=== PATIENT | male | born 1965 | race Two or more races ===

== ENCOUNTER 2020-09-26 16:37 | Inpatient (IN) | payer MEDICAID ==
[~2020-09-26] VITALS: Ht 167.6 cm; Wt 75.7 kg
--- NOTE | 2020-09-26 16:45 | NUR ---
MS CENTRAL COMMUNICATIONS SPECIALIST NOTE RECEIVED PATIENT DIRECT ADMISSION TO 306-1, ALERT AND ORIENTED X 4. NO SIGNS OR SYMPTOMS OF DISTRESS NOTED. COMPLAINED OF 3/10 PAIN OF CHEST. BREATHING IS EVEN AND UNLABORED. ABLE TO MAKE NEEDS KNOWN. ORIENTED PATIENT TO UNIT AND STAFF. IV ACCES LAC#20 PATENT AND INTACT. SKIN IS INTACT. SAFETY MEASURES IN PLACE WITH BED AT LOWEST POSITION AND SIDE RAILS UP X 2. CALL LIGHT IS WITHIN REACH. WILL CONTINUE TO MONITOR THROUGHOUT SHIFT.
[2020-09-26 17:00] VITALS: BP 126/82
[2020-09-26] MEDS ORDERED: Z GUARD REMEDY 2 OZ OINT TP PRN (17:30)
[2020-09-26] MEDS ORDERED: ZOLPIDEM TARTRATE 5 MG TABLET PO PRN (17:30)
[2020-09-26] MEDS ORDERED: ONDANSETRON HCL/PF 4 MG/2 ML VIAL IVP PRN (17:30)
[2020-09-26] MEDS ORDERED: MAGNESIUM HYDROXIDE 30 ML UDC PO PRN (17:30)
[2020-09-26] MEDS ORDERED: MAG HYDROX/AL HYDROX/SIMETH 30 ML UDC PO PRN (17:30)
[2020-09-26] MEDS ORDERED: ACETAMINOPHEN 325 MG TABLET PO PRN (17:30)
[2020-09-26] MEDS ORDERED: MECL-225 PO (17:43)
[2020-09-26] MEDS ORDERED: ASPI-1169 PO (17:43)
[2020-09-26] MEDS ORDERED: DICY20TA11 PO (17:43)
[2020-09-26] MEDS ORDERED: MENT70.8 TP (17:43)
[2020-09-26] MEDS ORDERED: METO50TA16 PO (17:43)
[2020-09-26] MEDS ORDERED: ONDA4TAB5 PO (17:43)
[2020-09-26] MEDS ORDERED: ATOR20TA PO (17:43)
[2020-09-26] MEDS ORDERED: OMEP40CA21 PO (17:43)
[2020-09-26] MEDS ORDERED: BACL10TA PO (17:43)
--- NOTE | 2020-09-26 18:48 | NUR ---
MS RN CLOSING NOTE PATIENT AWAKE IN BED, ALERT AND ORIENTED X 4. NO SIGNS OR SYMPTOMS OF DISTRESS NOTED. BREATHING IS EVEN AND UNLABORED. ABLE TO MAKE NEEDS KNOWN. IV ACCES LAC#20 PATENT AND INTACT. SKIN IS INTACT. RAPID COVID TEST PENDING. SAFETY MEASURES IN PLACE WITH BED AT LOWEST POSITION AND SIDE RAILS UP X 2. CALL LIGHT IS WITHIN REACH. WILL ENDORSE CONTINUITY OF CARE TO NEXT NURSE.
[2020-09-26] MEDS: MORPHINE SULFATE INJ 2 MG/ML DISP.SYRIN IV PRN ×2 (19:03→22:40)
--- NOTE | 2020-09-26 19:30 | NUR ---
CHOREOGRAPHY DIRECTOR NOTES RECEIVED ON BED AWAKE,ALERT,ORIENTED X4,SPEAK FRISIAN WITH LITTLE AMHARIC.BREATHING REGULAR,NOT IN ANY FORM OF DISTRESS,SR-70 ON TELE MONITOR,C/O CHEST PAIN 5/10 ON PAIN SCALE,TOLERABLE VERBALIZED BY PATIENT.WITH SALINE LOCK LEFT AC INTACT AND PATENT.CALL LIGHT IN REACH,NEEDS ANTICIPATED.
[2020-09-26 20:00] VITALS: BP 104/66
[2020-09-26] MEDS: BACLOFEN (10 MG) 10 MG TABLET PO SCH (22:28)
[2020-09-26] MEDS: ASPIRIN 81 MG TAB.CHEW PO SCH (22:28)
[2020-09-26] MEDS: METOPROLOL TARTRATE 50 MG TABLET PO SCH (22:29)
--- NOTE | 2020-09-26 22:40 | NUR ---
FRONT OFFICE DEVELOPER NOTES PAIN MANAGEMENT C/O LEFT SHOULDER PAIN 9/10 ON PAIN SCALE, MORPHINE 1MG IV GIVEN PER PATIENT REQUEST.
[2020-09-27 04:19] VITALS: BP 97/62
[2020-09-27 06:18] LABS: BASOPHILS % (AUTO) 0.3 % (0.0-2.0); EOSINOPHILS % (AUTO) 2.2 % (0.0-6.0); HEMATOCRIT 39 % (39-51); HEMOGLOBIN 13.1 g/dL (13.5-17.5); LYMPHOCYTES # (AUTO) 1.4 K/uL (0.8-4.8); LYMPHOCYTES % (AUTO) 24.3 % (20.0-44.0); MEAN CORPUSCULAR HGB CONC 34 g/dl (31.0-36.0); MEAN CORPUSCULAR VOLUME 95 fL (80-96); MONOCYTES % (AUTO) 16.5 % (2.0-12.0); NEUTROPHILS # (AUTO) 3.3 K/uL (1.8-8.9); NEUTROPHILS % (AUTO) 56.7 % (43.0-81.0); PLATELET COUNT (AUTO) 246 K/uL (150-450); RED BLOOD CELL COUNT(AUTO) 4.08 MIL/uL (4.5-6.0); WHITE BLOOD COUNT (AUTO) 5.8 K/uL (4.3-11.0)
--- NOTE | 2020-09-27 06:52 | NUR ---
PAPER MACHINE BACK TENDER NOTES STILL WITH ON AND OFF CHEST PAIN MANAGE WITH MORPHINE,ABLE TO AMBULATE TO THE RESTROOM WITH STEADY GAIT.SALINE LOCK REMAINS PATENT.ALL DUE MEDS ADMINISTERED,CALL LIGHT IN REACH,NEEDS ATTENDED.
[2020-09-27 06:57] LABS: CALCIUM, SERUM 8.7 mg/dL (8.5-10.1); CREATININE 0.8 mg/dL (0.6-1.3); MAGNESIUM 2.4 mg/dL (1.8-2.4); PHOSPHORUS 4.7 mg/dL (2.5-4.9); POTASSIUM 4.5 mmol/L (3.5-5.1)
--- NOTE | 2020-09-27 07:43 | NUR ---
RN OPENING NOTE PATIENT RECEIVED IN CHAIR AO X 4 SPEAK SYRIAC, ABLE TO RESPONDS ALL STIMULI. SKIN IS WARM TO TOUCH, KEEP CLEAN/DRY, INTACT IV SITE. RESPIRATORY EVEN AND UNLABORED ON ROOM AIR. KEEP ELEVATED HOB FOR ENSURE AIRWAY AND ASPIRATION PRECAUTION, ALSO LOWEST BED POSITION FOR SAFETY. CALL LIGHT WITHIN REACH, WILL CONTINUE TO MONITOR.
[2020-09-27] MEDS: ASPIRIN 81 MG TAB.CHEW PO SCH (08:04)
[2020-09-27] MEDS: PANTOPRAZOLE 40 MG TABLET.DR PO SCH (08:04)
[2020-09-27] MEDS: BACLOFEN (10 MG) 10 MG TABLET PO SCH ×2 (08:04→16:35)
[2020-09-27 08:43] VITALS: BP 100/52
[2020-09-27] MEDS: METOPROLOL TARTRATE 50 MG TABLET PO SCH ×2 (09:00→16:36)
--- NOTE | 2020-09-27 09:00 | NUR ---
bp-100/52, p-67 will hold bp med.
[2020-09-27 09:57] LABS: BAND % (MANUAL) 1 % (0.0-5.0); EOSINOPHILS % (MANUAL) 2 % (0-4); LYMPHOCYTES % (MANUAL) 27 % (16-48); MONOCYTES % (MANUAL) 12 % (0-11.0); MYELOCYTES % 2 % (0-0); NEUTROPHILS % (MANUAL) 56 (42-76)
[2020-09-27] MEDS ORDERED: NITROGLYCERIN 0.4 MG/TAB BOTTLE ONE (12:28)
[2020-09-27] MEDS ORDERED: METOPROLOL TARTRATE INJ 5 MG/5 ML AMPUL ONE ×2 (12:28→12:53)
[2020-09-27] MEDS ORDERED: IOHEXOL-350 100 ML VIAL IV ONE (12:28)
[2020-09-27] MEDS ORDERED: CT SWABBABLE VALVE TRANS SET 1 EA INFUS.SET MC ONE (12:29)
[2020-09-27] MEDS ORDERED: IV NS 0.9% 250 ML IV ONE (12:29)
--- NOTE | 2020-09-27 12:30 | NUR ---
PATIENT LEFT TO CTA IN STABLE CONDITION. PATIENT STATED STILL A LITTLE PAIN ON LEFT SHOULDER BUT PAIN MUCH RELIEF AFTER TAKEN BACLOFEN.
[2020-09-27] MEDS: METOPROLOL TARTRATE INJ 5 MG/5 ML AMPUL IVP PRN ×3 (12:45→12:55)
[2020-09-27] MEDS ORDERED: NITROGLYCERIN 0.4 MG/TAB BOTTLE SL ONE (13:00)
--- NOTE | 2020-09-27 13:30 | NUR ---
PATIENT BACK FROM CTA, NO S/S OF DISTRESS OBSERVED. WILL CONTINUE TO MONITOR.
--- NOTE | 2020-09-27 18:03 | NUR ---
RN CLOSING NOTE PATIENT IN BED RESTING, S/P CTA. NO S/S OF DISTRESS OBSERVED. RESPIRATORY EVEN AND UNLABORED ON ROOM AIR O2SAT 100%. SKIN IS WARM TO TOUCH KEEP CLEAN/DRY INTACT IV SITE. KEPT ELEVATED HOB FOR ENSURE AIRWAY AND ASPIRATION PRECAUTION, ALSO LOWEST BED POSITION FOR SAFETY. CALL LIGHT WITHIN REACH, WILL ENDORSE MANAGER HEAVY DUTY.
[2020-09-27] MEDS: MORPHINE SULFATE INJ 2 MG/ML DISP.SYRIN IV PRN (19:32)
--- NOTE | 2020-09-27 19:40 | NUR ---
MS/RN OPENING NOTE RECEIVED PATIENT SLEEPING IN BED. ALERT AND ORIENTED X 4. PRIMARILY INDONESIAN SPEAKING BUT UNDERSTANDS SOME MAORI. ABLE TO MAKE NEEDS KNOWN. C/O PAIN TO LEFT SHOULDER 10/29, DENIES CHEST PAIN/SOB- WILL ADMINISTER ORDERED PAIN MEDICATION. IV ACCES TO LEFT AC #20G INTACT, PATENT AND SALINE LOCKED. CONTINUES ON CARDIAC DIET WITH NO S/SX OF ASPIRATION NOTED. CALL LIGHT WITHIN REACH. ASPIRATION, FALL AND SAFETY PRECAUTIONS MAINTAINED. WILL CONTINUE TO MONITOR.
[2020-09-27 20:00] VITALS: BP 110/61
--- NOTE | 2020-09-27 20:00 | NUR ---
MS/RN NOTE ADMINISTERED PRN MORPHINE IV FOR PAIN LEVEL OF 8/10 TO LEFT SHOULDER.
[2020-09-27] MEDS ORDERED: ATORVASTATIN 10 MG TABLET PO SCH (22:00)
[2020-09-28] MEDS: MORPHINE SULFATE INJ 2 MG/ML DISP.SYRIN IV PRN ×3 (00:48→11:27)
--- NOTE | 2020-09-28 06:10 | NUR ---
MS/RN CLOSING NOTE PATIENT CURRENTLY SLEEPING IN BED. ALERT AND ORIENTED X 4. PRIMARILY IVORIAN SPEAKING BUT UNDERSTANDS SOME ITALIAN. ABLE TO MAKE NEEDS KNOWN. NO C/O PAIN AT THIS TIME. IV ACCES TO LEFT AC #20G INTACT, PATENT AND SALINE LOCKED. CONTINUES ON CARDIAC DIET WITH NO S/SX OF ASPIRATION NOTED. CALL LIGHT WITHIN REACH. ASPIRATION, FALL AND SAFETY PRECAUTIONS MAINTAINED. WILL ENDORSE PLAN OF CARE TO ONCOMING SHIFT.
--- NOTE | 2020-09-28 07:28 | NUR ---
MS RN OPENING NOTES RECEIVED PATIENT IN BED, AWAKE, A/OX4. PATIENT ON ROOM AIR; BREATHING EVEN AND UNLABORED, NO SOB PRESENT AT THIS TIME. IV ACCESS ON LAC G # 20, S/L PRESENT AND INTACT. NO COMPLAINS OF PAIN AT THIS MOMENT. SAFETY PRECAUTIONS IN PLACE; BED IN LOW POSITION AND LOCKED, RAILS UP X2, CALL LIGHT WITHIN REACH. WILL CONTINUE TO MONITOR PATIENT.
[2020-09-28 08:00] VITALS: BP 129/83
[2020-09-28] MEDS: PANTOPRAZOLE 40 MG TABLET.DR PO SCH (08:29)
[2020-09-28] MEDS: ASPIRIN 81 MG TAB.CHEW PO SCH (08:29)
[2020-09-28] MEDS: BACLOFEN (10 MG) 10 MG TABLET PO SCH (08:29)
[2020-09-28 08:30] VITALS: BP 129/83
[2020-09-28] MEDS: METOPROLOL TARTRATE 50 MG TABLET PO SCH (08:30)
--- NOTE | 2020-09-28 11:28 | NUR ---
MS RN NOTES PATIENT COMPLAINING OF SHOULDER PAIN 9 OUT OF 10. PRN PAIN MEDICATION ADMINISTERED. WILL REASSESS.
--- NOTE | 2020-09-28 14:29 | NUR ---
MS PLANT OPERATIONS MANAGER NOTES PATIENT DISCHARGED HOME IN MEDICALLY STABLE CONDITION. PATIENT A/O X4, ON ROOM AIR AND ABLE TO MAKE NEEDS KNOWN. ALL DISCHARGE PAPERWORK READY AND TEACHING PROVIDED TO PATIENT REGARDING PHYSICIAN ORDERS, MEDICATIONS AND FOLLOW UP; PATIENT VERBALIZED UNDERSTANDING AND PAPERS SIGNED. BELONGINGS ACCOUNTED FOR AND FORM SIGNED WELL. PERSONAL MEDICATIONS PICKED UP FROM THE PHARMACY AND RETURNED TO PATIENT. SKIN INTACT. IV ACCESS REMOVED BEFORE PATIENT LEFT THE UNIT. WRISTBAND REMOVED WELL. PATIENT LEFT THE FLOOR AT 1430 ACCOMPANIED BY CARBIDE OPERATOR AND LEFT THE HOSPITAL IN A TAXI (PAID BY PATIENT) PER HIS OWN REQUEST.
== END 2020-09-28 14:30 | disposition home or self-care (01) | DRG 190 ==
LOC: TELE 16:37 → MED 09-27 09:09
PROVIDERS: ADMIT Nurse Practitioner Acute Care; ATTEND Nurse Practitioner Acute Care
DX: I21.4 Non-ST elevation (NSTEMI) myocardial infarction (principal); E78.5 Hyperlipidemia, unspecified; I10 Essential (primary) hypertension; I25.10 Atherosclerotic heart disease of native coronary artery without angina pectoris; Z20.822 Contact with and (suspected) exposure to COVID-19
CPT/HCPCS: 36415; 73030-TC; 75574; 80048-TC; 80061-TC; 83735-TC; 84100-TC; 84484-TC; 85025-TC; 93307-TC; G0378; J2270; J3490; J7050; Q9967; U0003

== ENCOUNTER 2021-01-19 18:04 | Emergency (ER) | payer SELFPAY ==
[~2021-01-19] VITALS: Ht 165.1 cm; Wt 86.2 kg
[~2021-01-19 18:04] MED LIST: ASPI-1169 PO; ATOR20TA PO; BACL10TA PO; DICY20TA11 PO; MECL-182 PO; MENT70.8 TP; METO50TA16 PO; OMEP40CA21 PO; ONDA4TAB5 PO
[2021-01-19 18:23] VITALS: BP 156/112
--- NOTE | 2021-01-19 18:26 | NUR ---
TAKEN TO RADIOLOGY
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
--- NOTE | 2021-01-19 19:12 | NUR ---
[employer] 9X14 AT BEDSIDE
--- NOTE | 2021-01-19 19:18 | NUR ---
Patient discharged to home in stable condition. Written and verbal after care instructions given. Patient verbalizes understanding of instruction. [employer] UNIT# 9X14 WILL GIVE A RIDE TO PATIENT TO GET HOME
== END 2021-01-19 19:20 | disposition home or self-care (01) ==
LOC: ER 18:06
DX: S13.4XXA Sprain of ligaments of cervical spine, initial encounter (principal); S09.8XXA Other specified injuries of head, initial encounter; Y08.89XA Assault by other specified means, initial encounter; Y93.89 Activity, other specified; Y92.89 Other specified places as the place of occurrence of the external cause; Y99.8 Other external cause status
CPT/HCPCS: 72125-TC

== ENCOUNTER 2021-05-13 22:52 | Inpatient (IN) | payer SELFPAY ==
[~2021-05-13] VITALS: Ht 144.8 cm; Wt 79.8 kg
--- NOTE | 2021-05-13 23:05 | NUR ---
TO ER BED 2. BIBSELF C/O ABD PAIN AND LEFT SIDE CP X 5 DAYS, N/V AFTER EATING. PT CHANGED INTO GOWN. CONNECTED TO MONITOR. NOT IN RESPIRATORY DISTRESS. AWAITING MD CLAYTON
--- NOTE | 2021-05-13 23:30 | NUR ---
URINE SAMPLE COLLECTED AND SENT TO LAB
[2021-05-13 23:40] LABS: CARBON DIOXIDE 26 mmol/L (21-32); CHLORIDE 89 mmol/L (98-107); CREATININE 0.8 mg/dL (0.6-1.3); GLUCOSE 124 mg/dL (74-106); POTASSIUM 3.5 mmol/L (3.5-5.1); SODIUM SERUM 125 mmol/L (136-145); UREA NITROGEN, BLOOD 8 mg/dL (7-18)
--- NOTE | 2021-05-13 23:42 | NUR ---
PT TAKEN FOR CT SCAN
[2021-05-13 23:49] LABS: ALANINE AMINOTRANSFERASE 59 U/L (12-78); ALBUMIN 4.4 g/dL (3.4-5.0); ALKALINE PHOSPHATASE 108 U/L (46-116); ASPARTATE AMINOTRANSFERASE 64 U/L (15-37); BILIRUBIN,DIRECT 0.2 mg/dL (0.0-0.2); BILIRUBIN,TOTAL 0.6 mg/dL (0.2-1.0); LIPASE 116 U/L (73-393); TOTAL PROTEIN, SERUM 8.1 g/dL (6.4-8.2)
--- NOTE | 2021-05-13 23:49 | NUR ---
PT RETURNED FROM CT, RECONNECTED TO MONITOR
[2021-05-14 00:01] LABS: BILIRUBIN,URINE NEGATIVE (NEGATIVE); COLOR,URINE YELLOW (YELLOW); LEUKOCYTE ESTERASE ,URINE NEGATIVE (NEGATIVE); NITRITE, URINE NEGATIVE (NEGATIVE); PROTEIN,URINE NEGATIVE (NEGATIVE); UGLUCOSE NEGATIVE (NEGATIVE); UROBILINOGEN,URINE 0.2 EU/dL (0.2)
[2021-05-14 00:06] LABS: BASOPHILS % (AUTO) 0.4 % (0.0-2.0); EOSINOPHILS % (AUTO) 0.8 % (0.0-6.0); HEMATOCRIT 41 % (39-51); HEMOGLOBIN 14.3 g/dL (13.5-17.5); LYMPHOCYTES # (AUTO) 0.5 K/uL (0.8-4.8); LYMPHOCYTES % (AUTO) 7.8 % (20.0-44.0); MEAN CORPUSCULAR HGB CONC 35 g/dl (31.0-36.0); MEAN CORPUSCULAR VOLUME 93 fL (80-96); MONOCYTES # (AUTO) 0.6 K/uL (0.1-1.30); NEUTROPHILS # (AUTO) 4.7 K/uL (1.8-8.9); PLATELET COUNT (AUTO) 279 K/uL (150-450); RED BLOOD CELL COUNT(AUTO) 4.35 MIL/uL (4.5-6.0); WHITE BLOOD COUNT (AUTO) 5.9 K/uL (4.3-11.0)
--- NOTE | 2021-05-14 00:28 | NUR ---
COVID ANTIGEN SWAB COLLECTED AND SENT TO LAB
--- NOTE | 2021-05-14 00:47 | NUR ---
IV LINE ESTABLISHED. LFA 20G.
--- NOTE | 2021-05-14 00:51 | NUR ---
BED 309-1
[2021-05-14] MEDS ORDERED: METOCLOPRAMIDE HCL 10 MG/2 ML VIAL ONE (00:53)
[2021-05-14] MEDS ORDERED: MORPHINE SULFATE INJ 2 MG/ML DISP.SYRIN ONE (00:53)
[2021-05-14] MEDS ORDERED: PIPERACILLIN /TAZOBACTAM 3.375 G in IV D5W 50 ML IV ONE (01:00)
[2021-05-14] MEDS ORDERED: METOCLOPRAMIDE HCL 10 MG/2 ML VIAL IV ONE (01:00)
[2021-05-14] MEDS ORDERED: IV NS 0.9% 1,000 ML BAG IV ONE (01:00)
[2021-05-14] MEDS ORDERED: MORPHINE SULFATE INJ 2 MG/ML DISP.SYRIN IV ONE (01:00)
--- NOTE | 2021-05-14 01:00 | NUR ---
MRSA SWAB COLLECTED AND SENT TO LAB. PATIENT'S BELONGINGS LIST DONE.
--- NOTE | 2021-05-14 01:07 | NUR ---
REPORT GIVEN TO CHRIS GONZALEZ FOR LOGAN
[2021-05-14] MEDS ORDERED: PIPERACILLIN /TAZOBACTAM 3.375 G VIAL IV ONE (01:11)
[2021-05-14] MEDS ORDERED: ASPIRIN EC 81 MG TABLET.DR PO ONE (01:12)
[2021-05-14] MEDS ORDERED: ASPIRIN 81 MG TAB.CHEW ONE (01:13)
[2021-05-14] MEDS: ASPIRIN 81 MG TAB.CHEW PO SCH ×2 (01:20→08:38)
--- NOTE | 2021-05-14 01:50 | NUR ---
RN ADMITTING NOTE PATIENT ADMITTED FROM ER, PATIENT AMBULATED FROM GURNEY TO BED. PATIENT A/O X 4 ABLE TO MAKE NEEDS KNOWN. COMPLAINS OF ABDOMINAL PAIN AND PAIN ON LEFT SHOULDER TO ARM. NO CHEST PAIN VERBALIZED. PATIENT UNDERSTANDS SURINAMESE, PRIMARY LANGUAGE THAI. TELE MONITOR READS SR 85 BPM. SKIN IS INTACT. PMH DOCUMENTED. PATIENT STATES HE'S GOTTEN 2 COVID VACCINES PFIZER. PATIENT WOULD LIKE TO RECEIVE BOOSTER AND FLU VACCINE BEFORE DISCHARGE. PATIENT HAS A LFA 20G PATIENT AND INTACT. PATIENT 'S BELONGINGS INVENTORIED. ORIENTED PATIENT TO THE ROOM ANA GONZALEZ. SAFETY MEASURES IMPLEMENTED. BED LOCKED AND IN LOWEST POSITION, CALL LIGHT WITHIN REACH, SIDE RAILS UP. WILL MONITOR PATIENT CLOSELY.
[2021-05-14] MEDS ORDERED: MAG HYDROX/AL HYDROX/SIMETH 30 ML UDC PO PRN (02:00)
[2021-05-14] MEDS ORDERED: HYDROCODONE/APAP 5/325MG TABLET PO PRN (02:00)
[2021-05-14] MEDS ORDERED: IV NS 0.9% 1,000 ML IV PRN (02:00)
[2021-05-14] MEDS ORDERED: MAGNESIUM HYDROXIDE 30 ML UDC PO PRN (02:00)
[2021-05-14] MEDS ORDERED: Z GUARD REMEDY 4 OZ OINT TP PRN (02:00)
[2021-05-14] MEDS ORDERED: TEMAZEPAM 15 MG CAPSULE PO PRN (02:00)
[2021-05-14] MEDS: ENOXAPARIN SODIUM 40 MG/0.4 ML DISP.SYRIN SQ SCH ×2 (02:26→21:19)
[2021-05-14] MEDS: MORPHINE SULFATE INJ 2 MG/ML DISP.SYRIN IV PRN ×2 (02:27→07:31)
--- NOTE | 2021-05-14 07:27 | NUR ---
RN CLOSING NOTE PATIENT A/O X 4 ABLE TO MAKE NEEDS KNOWN. NO COMPLAINTS OF PAIN OR RESPIRATORY DISTRESS AT THIS TIME. TELE MONITOR READS SR 85 BPM. PMH PATIENT HAS A LFA 20G PATIENT AND INTACT. ALL NURSING NEEDS MET THROUGHOUT THE SHIFT. BED LOCKED AND IN LOWEST POSITION, CALL LIGHT WITHIN REACH, SIDE RAILS UP. WILL ENDORSE LOGAN TO DAY SHIFT NURSE.
--- NOTE | 2021-05-14 07:30 | NUR ---
MASTER BREWER OPENING NOTES RECEIVED PATIENT IN BED A/O X 4 ABLE TO MAKE NEEDS KNOWN WITH COMPLAINT OF 10/10 LOWER ABDOMINAL PAIN (HX OF RECURRENT ABDOMINAL PAIN, PRN PAIN MED TO BE ADMINISTERED). ON ROOM AIR WITH NO COMPLAINTS OF RESPIRATORY DISTRESS AT THIS TIME. L FA 20 G IV WITH NS INFUSING AT 75 ML/HR. SAFETY MEASURES IN PLACE: BED IN LOWEST LOCKED POSITION, CALL LIGHT WITHIN REACH, SIDE RAILS UP X 2. WILL CONTINUE TO MONITOR. Addendum: 05/14/21 at 0759 by ANDREW WALLACE RN PATIENT ON EXTERNAL ROLL COATING MACHINE OPERATOR READING NSR 98
--- NOTE | 2021-05-14 07:37 | NUR ---
PATIENT A/O X 4, ABLE TO MAKE NEEDS KNOWN AND WITH COMPLAINT OF 10/10 LOWER ABDOMINAL PAIN, PATIENT REQUESTED PAIN MEDICATION. PRN MORPHINE 4 MG IVP ADMINISTERED ORDERED. WILL CONTINUE TO MONITOR FOR S/S OF PAIN.
[2021-05-14] MEDS ORDERED: TRAM50TA2 PO (08:16)
[2021-05-14] MEDS ORDERED: ASPI-1420 PO (08:16)
[2021-05-14] MEDS: PANTOPRAZOLE 40 MG TABLET.DR PO SCH (08:38)
[2021-05-14] MEDS: ASPIRIN EC 81 MG TABLET.DR PO SCH (09:00)
[2021-05-14] MEDS ORDERED: Medication Not On Formulary EA (Omeprazole 40 MG) PO SCH (09:00)
[2021-05-14] MEDS ORDERED: ASPIRIN 81 MG TAB.CHEW PO SCH (09:00)
--- NOTE | 2021-05-14 09:29 | NUR ---
RN NOTES PT SEEN AND EVALUATED BY DR GOODMAN. CTA WAS ORDERED, CONSENT SIGNED AND CONTRAST SCREENING QUESTIONNAIRES DONE.
[2021-05-14] MEDS: METOPROLOL TARTRATE 50 MG TABLET PO SCH ×2 (09:34→16:26)
[2021-05-14] MEDS: TRAMADOL HCL 50 MG TABLET PO SCH ×2 (09:35→21:15)
[2021-05-14] MEDS: LISINOPRIL (10MG) 10 MG TABLET PO SCH (09:36)
[2021-05-14 10:22] VITALS: BP 147/89
[2021-05-14 11:22] LABS: BACTERIA,URINE None seen /HPF (None Seen); RBC,URINE 0-2 /HPF (0-2); SQUAMOUS EPITHELIAL CELL,UR None Seen /HPF (None Seen); WBC,URINE 0-1 /HPF (0-3)
[2021-05-14] MEDS: IV NS 0.9% 1,000 ML IV SCH ×2 (11:39→21:54)
[2021-05-14] MEDS ORDERED: IOHEXOL-350 100 ML VIAL IV ONE (13:17)
[2021-05-14] MEDS ORDERED: NITROGLYCERIN 0.4 MG/TAB BOTTLE ONE (13:17)
[2021-05-14] MEDS ORDERED: METOPROLOL TARTRATE INJ 5 MG/5 ML AMPUL ONE ×3 (13:18→14:08)
[2021-05-14] MEDS ORDERED: IV NS 0.9% 250 ML IV ONE (13:18)
[2021-05-14] MEDS ORDERED: CT SWABBABLE VALVE TRANS SET 1 EA INFUS.SET MC ONE ×2 (13:18→13:49)
[2021-05-14] MEDS ORDERED: NITROGLYCERIN 0.4 MG/TAB BOTTLE SL ONE (13:30)
[2021-05-14] MEDS: METOPROLOL TARTRATE INJ 5 MG/5 ML AMPUL IVP PRN ×6 (13:42→14:07)
[2021-05-14] MEDS ORDERED: IV NS 0.9% 1,000 ML IV ONE (13:49)
--- NOTE | 2021-05-14 14:22 | NUR ---
pt consented to CTA heart with 3D imaging; BP initially low at 93/53 Dr Moore aware with order to give NS 1 liter IV bolus; BP improved and was able to give a total of Metoprolol 5 mg/IVP every 5 minutes x 6 doses, NTG was not given as BP dropped again to SBP90's; pt tolerated procedure; sent back to floor ; report given to LISA Park
[2021-05-14] MEDS ORDERED: IV NS 0.9% 500 ML IV PRN (14:30)
[2021-05-14 15:52] VITALS: BP 147/93
[2021-05-14] MEDS: ACETAMINOPHEN 325 MG TABLET PO PRN (16:17)
[2021-05-14] MEDS: ONDANSETRON HCL/PF 4 MG/2 ML VIAL IVP PRN (16:17)
--- NOTE | 2021-05-14 16:21 | NUR ---
RN NOTES PT C/O MILD HEADACHE AND NAUSEA. PRN TYLENOL 650MG PO AND ZOFRAN 4MF/2ML IVP ADMINISTERED AT 1617. WILL CONTINUE TO MONITOR AND REASSESS PT.
--- NOTE | 2021-05-14 17:28 | NUR ---
RN NOTES RESULTS OF CTA OF HEAD AND CAROTID SENT TO DR GOODMAN VIA TEXT MESSAGE. AWAITING ANY FURTHER ORDERS.
--- NOTE | 2021-05-14 18:40 | NUR ---
309-1 TAPE KELLER OPERATOR CLOSING NOTES PATIENT IN BED A/O X 4 ABLE TO MAKE NEEDS KNOWN, ON ROOM AIR WITH NO COMPLAINTS OF PAIN OR RESPIRATORY DISTRESS AT THIS TIME. ON EXTERNAL MANUAL LATHE OPERATOR READING NSR 70. L FA 20 G IV WITH NS INFUSING AT 75 ML/HR. SAFETY MEASURES IN PLACE: BED IN LOWEST LOCKED POSITION, CALL LIGHT WITHIN REACH, SIDE RAILS UP X 2. WILL ENDORSE TO WAREHOUSE ORDER PULLER FOR LOGAN.
[2021-05-14 20:00] VITALS: BP 100/63
--- NOTE | 2021-05-14 20:22 | NUR ---
SCOOP FILLER OPENING NOTE PATIENT AWAKE IN BED. A/OX1, YI/KISWAHILI SPEAKING. NO S/S OF DISTRESS, BREATHING SYMMETRICAL. RM AIR. TELE MONITOR REVEALS SR 73. LFA #20 AND RAC #20 INTACT AND PATENT. SAFETY MEASURES IN PLACE: BED AT LOWEST POSITION, RAILS UP X2, CALL LALA WITHIN REACH. WILL CONTINUE TO MONITOR.
[2021-05-14] MEDS ORDERED: ATORVASTATIN 10 MG TABLET PO SCH (22:00)
[2021-05-14] MEDS ORDERED: Medication Not On Formulary EA (Atorvastatin Calcium (Lipitor) 20 MG) PO SCH (22:00)
[2021-05-15] VITALS: BP 115/65
[2021-05-15 04:00] VITALS: BP 124/70
--- NOTE | 2021-05-15 06:38 | NUR ---
ASSISTANT CHIEF ENGINEER CLOSING NOTE PATIENT ASLEEP IN BED. A/OX4. NO S/S OF DISTRESS, BREATHING SYMMETRICAL. RAC #20 SL & LFA #20 RUNNING W/ NS @ 100ML/HR -BOTH INTACT AND PATENT. TELE MONITOR REVEALS SR 66. SAFETY MEASURES IN PLACE: BED AT LOWEST POSITION, RAILS UP X2, CALL LALA WITHIN REACH. WILL ENDORSE TO NEXT SHIFT FOR LOGAN.
--- NOTE | 2021-05-15 07:18 | NUR ---
FABRIC WORKER OPENING NOTE PATIENT ON BED ASLEEP BUT RESPONSIVE TO CALL, HE IS ALERT AND ORIENTED X 4. PATIENT IS ON ROOM AIR WITH NO SIGNS OF DISTRESS. WITH RIGHT AC IV ACCESS G20 ON SALINE LOCK, PATNET AND INTACT. WITH LEFT FOREARM G 20 WITH IVF NS 100 ML/HR, INFUSING WELL. WITH NO SKIN BREAKDOWN. \O COMPLAINTS OF PAIN OR DISCOMFORT AT THIS TIME. SAFETY MEASURES IN PLACED. CALL LIGHT WITHIN REACH. BED ON LOWEST LOCKED POSITION, SIDE RAILS UP X2. WILL CONTINUE TO MONITOR PATIENT.
[2021-05-15 07:45] LABS: BASOPHILS % (AUTO) 0.4 % (0.0-2.0); EOSINOPHILS % (AUTO) 2.4 % (0.0-6.0); HEMATOCRIT 39 % (39-51); HEMOGLOBIN 13.1 g/dL (13.5-17.5); LYMPHOCYTES # (AUTO) 0.7 K/uL (0.8-4.8); LYMPHOCYTES % (AUTO) 12.9 % (20.0-44.0); MEAN CORPUSCULAR HGB CONC 34 g/dl (31.0-36.0); MEAN CORPUSCULAR VOLUME 95 fL (80-96); MONOCYTES # (AUTO) 0.9 K/uL (0.1-1.30); MONOCYTES % (AUTO) 15.5 % (2.0-12.0); NEUTROPHILS # (AUTO) 3.8 K/uL (1.8-8.9); NEUTROPHILS % (AUTO) 68.8 % (43.0-81.0); PLATELET COUNT (AUTO) 278 K/uL (150-450); RED BLOOD CELL COUNT(AUTO) 4.06 MIL/uL (4.5-6.0); WHITE BLOOD COUNT (AUTO) 5.5 K/uL (4.3-11.0)
--- NOTE | 2021-05-15 07:45 | NUR ---
ASSISTANT MANAGER BILINGUAL NOTE PATIENT SEEN BY DR. GOODMAN. WILL CONTINUE TO MONITOR PATIENT.
[2021-05-15 08:00] VITALS: BP 113/64
[2021-05-15 08:11] LABS: CALCIUM, SERUM 9.2 mg/dL (8.5-10.1); CREATININE 0.7 mg/dL (0.6-1.3); MAGNESIUM 2.2 mg/dL (1.8-2.4); PHOSPHORUS 4.2 mg/dL (2.5-4.9); POTASSIUM 4.4 mmol/L (3.5-5.1)
[2021-05-15] MEDS ORDERED: LISI10TA29 PO (08:45)
[2021-05-15] MEDS: ASPIRIN EC 81 MG TABLET.DR PO SCH (08:51)
[2021-05-15] MEDS: PANTOPRAZOLE 40 MG TABLET.DR PO SCH (08:51)
[2021-05-15] MEDS: LISINOPRIL (10MG) 10 MG TABLET PO SCH (08:52)
[2021-05-15] MEDS: METOPROLOL TARTRATE 50 MG TABLET PO SCH ×2 (08:52→16:28)
[2021-05-15] MEDS: TRAMADOL HCL 50 MG TABLET PO SCH (08:53)
--- NOTE | 2021-05-15 11:00 | NUR ---
TEST ENG NOTE PATIENT WITH ORDER FOR DISCHARGE TO HOME. PATIENT HEALTH TEACHING DONE AND VERBALIZED UNDERSTANDING AND APPRECIATION. IN STABLE CONDITION. COMFORT MEASURES PROVIDED. WILL CONTINUE TO MONITOR PATIENT.
[2021-05-15] MEDS ORDERED: ONDA4TAB5 PO (11:10)
[2021-05-15] MEDS: MORPHINE SULFATE INJ 2 MG/ML DISP.SYRIN IV PRN (11:48)
[2021-05-15] MEDS: ONDANSETRON HCL/PF 4 MG/2 ML VIAL IVP PRN (11:48)
[2021-05-15 12:18] LABS: BAND % (MANUAL) 2 % (0.0-5.0); LYMPHOCYTES % (MANUAL) 6 % (16-48); NEUTROPHILS % (MANUAL) 75 (42-76)
[2021-05-15 12:19] LABS: EOSINOPHILS % (MANUAL) 1 % (0-4); MONOCYTES % (MANUAL) 13 % (0-11.0)
--- NOTE | 2021-05-15 12:20 | NUR ---
NEWSPAPER MANAGING EDITOR NOTE PATIENT COMPLAINED OF STOMACH PAIN AND NAUSEA BUT NO EPISODE OF EMESIS. PATIENT WITH PRN MEDICATION. GIVEN. WILL CONTINUE TO MONITOR
[2021-05-15] MEDS: MECLIZINE HCL 25 MG TABLET PO PRN ×2 (13:33→18:04)
[2021-05-15 14:38] LABS: THYROID STIMULATING HORMONE 1.108 uIU/mL (0.358-3.74)
[2021-05-15] MEDS ORDERED: INFLUENZA VACCINE 2021-22 0.5 ML DISP.SYRIN IM ONE (16:00)
--- NOTE | 2021-05-15 16:25 | NUR ---
SS Note: SS consult requested by pt. MILLIE met with this 55 year old male with past medical history significant for hyperlipidemia, hypertension per EMR. The pt. was admitted to [facility] due to chest pain and abdominal pain. Upon SS consult, the pt. is alert & oriented x 4 and makes goodeye contact. The pt. has depressed mood & affect. The pt. denies SI/HI and denies hallucinations. The pt. states that h de not have insurance coverage at this time and needs medications. MILLIE called the Healthcare Financial Services here at [facility] and they stated that they met with this pt. yesterday and applied for Medi-mak. MILLIE notified pt. and he is agreeable. Pt. showed SW paperwork stating he is eligible for a program that would help him receive free medication. SW explained to pt. that he just has to sign the documents and send them with the prepaid envelope attached. He expressed understanding and stated he would like to speak to Healthcare Financial Services. MILLIE called and left them a voicemail. MILLIE provided pt. with the following resources and pt. accepted them. MEDICAL INSURANCE SUPPORT SERVICES: [facility] [phone] Health Insurance Counseling/Advocacy Programs (HICAP)-Must have Medicare. Offers counseling for Medi-Mak eligibility [phone] Department of Public Traveling Sales Representative [phone] www.[facility].ca.gov Medicare [phone] www.socialsecurity.org Social Security [phone] TRANSPORTATION: Local [facility] may have applications for transportation programs and additional resources. ACCESS Services [phone] Transportation for seniors and disabled persons 7 days a week requiring 254 hr. advance reservation. Must apply and register for program bethel eligible. [employer] [phone] or [phone] Transportation for seniors and persons with ADA card/metro disabled card in the [facility]. M-F only. Must register for services. [employer] [phone] Serves 65 years + in conjunction with [employer] program. Must be registered with both programs. [employer] [phone] Provides wheelchair/Alyotechrney van service. Adult Medical Transport [phone] Accepts Medi-mak with prior authorization. [employer] [phone] Provides wheelchair Transport. [facility] Wide Transportation [phone] Provides gurney service [facility] [phone] Gurney Transport. [facility] Transportation [phone] wheelchair & gurney transport [facility] Transportation [phone] wheelchair & gurney transport [place] [facility]Emergency [facility] [phone] wheelchair & gurney transport [facility] [phone] Short Term Transportation primarily for adults with disabilities on social security income. Nominal fee may apply and a reservation is required. [facility] [phone] or [phone] [facility] [phone] [place] [address] Services -[phone] For additional programs & services Healthcare Clinics: [facility] [address], [address] [place]. [place] ; [facility] [address] [place] [address]; [facility] [address] [facility] [place] [address] [phone]
[2021-05-15] MEDS: ACETAMINOPHEN 325 MG TABLET PO PRN (16:27)
[2021-05-15 16:28] VITALS: BP 119/62
--- NOTE | 2021-05-15 16:30 | NUR ---
MS RN NOTE PATIENT REQUESTED FOR INFLUENZA VACCINE PRIOR TO DISCHARGE. PATIENT VERBALIZED UNDERSTANDING AND SIGNED INFORMED CONSENT FOR RECEIVING VACCINE. VITAL SIGNS WNL. VACCINE GIVEN AND PROCEDURE TOLERATED WELL. IN STABLE CONDITION. AWAITING PICK-UP. WILL CONTINUE TO MONITOR PATIENT.
--- NOTE | 2021-05-15 18:17 | NUR ---
MS RN NOTE PATIENT DISCHARGED ORDERED. IN STABLE CONDITION. PATIENT ACCOMPANIED TO LOBBY BY NURSE AND WHEELED ON A WHEELCHAIR. PATIENT ARRANGED TRANSPORTATION FOR HIMSELF. IV ACCESS REMOVED AND COVERED WITH DRY DRESSING. TOLERATED WELL. REFUSED TO HAVE HIS ID BAND REMOVED, DESPITE ANY EXPLANATION. HE SAID HE WANTS TO KEEP IT AND WILL REMOVE IT WHEN HE GETS HOME. DISCHARGED PATIENT ORDERED. IN STABLE CONDITION. ENDORSED ACCORDINGLY.
== END 2021-05-15 18:25 | disposition home or self-care (01) | DRG 206 ==
LOC: ER 22:54 → MED 05-14 00:51 → TELE 05-14 03:15
PROVIDERS: ADMIT Internal Medicine; ATTEND Internal Medicine
DX: M94.0 Chondrocostal junction syndrome [Tietze] (principal); E87.1 Hypo-osmolality and hyponatremia; K57.30 Diverticulosis of large intestine without perforation or abscess without bleeding; Z20.822 Contact with and (suspected) exposure to COVID-19; E78.5 Hyperlipidemia, unspecified; I10 Essential (primary) hypertension; I25.10 Atherosclerotic heart disease of native coronary artery without angina pectoris; Z79.82 Long term (current) use of aspirin; Z79.899 Other long term (current) drug therapy; M51.36 Other intervertebral disc degeneration, lumbar region; R07.89 Other chest pain
CPT/HCPCS: 36415; 71045-TC; 75574; 80048-TC; 80061-TC; 80076-TC; 81001; 83690-TC; 83735-TC; 84100-TC; 84295-TC; 84443-TC; 84484-TC; 85025-TC; 87081-TC; 93307-TC; G0378; J1650; J2270; J2405; J2543; J2765; J3490; J7030; J7040; J7050; J7060; J8597; Q2036; Q9967

== ENCOUNTER 2021-05-26 12:09 | Inpatient (IN) | payer MEDICAID ==
[~2021-05-26] VITALS: Ht 167.6 cm; Wt 85.3 kg
[~2021-05-26 12:09] MED LIST changes: -ASPI-1169 PO; +ASPI-1420 PO; -BACL10TA PO; +LISI10TA29 PO; -MENT70.8 TP; +TRAM50TA2 PO
--- NOTE | 2021-05-26 12:20 | NUR ---
BIBS FOR C/O L SIDED CHEST PAIN R/T LUE W/ NUMBNESS X 4 DAYS, WORST TODAY. IN ROOM AIR AND DENIES SOB. RESPIRATION REGULAR AND UNLABORED. THE PATIENT IS ATTACHED TO THE MONITOR. WILL CONTINUE TO MONITOR THE PATIENT.
--- NOTE | 2021-05-26 12:24 | NUR ---
IV LINE IS ESTABLISHED, BLOOD SPECIMEN COLLECTED AND SENT TO THE LAB. THE LINE IS SALINE LOCKED.
--- NOTE | 2021-05-26 12:27 | NUR ---
X RAY AT BEDSIDE
[2021-05-26 12:50] LABS: BASOPHILS % (AUTO) 0.9 % (0.0-2.0); EOSINOPHILS % (AUTO) 1.6 % (0.0-6.0); HEMATOCRIT 40 % (39-51); HEMOGLOBIN 13.8 g/dL (13.5-17.5); LYMPHOCYTES % (AUTO) 21.7 % (20.0-44.0); MEAN CORPUSCULAR HGB CONC 35 g/dl (31.0-36.0); MEAN CORPUSCULAR VOLUME 94 fL (80-96); MONOCYTES # (AUTO) 0.8 K/uL (0.1-1.30); MONOCYTES % (AUTO) 16.2 % (2.0-12.0); NEUTROPHILS # (AUTO) 2.8 K/uL (1.8-8.9); NEUTROPHILS % (AUTO) 59.6 % (43.0-81.0); PLATELET COUNT (AUTO) 345 K/uL (150-450); RED BLOOD CELL COUNT(AUTO) 4.24 MIL/uL (4.5-6.0); WHITE BLOOD COUNT (AUTO) 4.7 K/uL (4.3-11.0)
[2021-05-26 13:08] LABS: ALANINE AMINOTRANSFERASE 45 U/L (12-78); ALKALINE PHOSPHATASE 100 U/L (46-116); ASPARTATE AMINOTRANSFERASE 24 U/L (15-37); BILIRUBIN,DIRECT 0.1 mg/dL (0.0-0.2); BILIRUBIN,TOTAL 0.7 mg/dL (0.2-1.0); CALCIUM, SERUM 9.1 mg/dL (8.5-10.1); CARBON DIOXIDE 28 mmol/L (21-32); CHLORIDE 95 mmol/L (98-107); CREATININE 0.9 mg/dL (0.6-1.3); POTASSIUM 3.7 mmol/L (3.5-5.1); SODIUM SERUM 130 mmol/L (136-145); TOTAL PROTEIN, SERUM 7.9 g/dL (6.4-8.2); UREA NITROGEN, BLOOD 13 mg/dL (7-18)
--- NOTE | 2021-05-26 13:22 | NUR ---
COVID TEST COLLECTED AND SENT
[2021-05-26 13:29] LABS: GLUCOSE 119 mg/dL (74-106)
[2021-05-26] MEDS: ENOXAPARIN SODIUM 40 MG/0.4 ML DISP.SYRIN SQ SCH (15:00)
[2021-05-26] MEDS ORDERED: ACETAMINOPHEN 325 MG TABLET PO PRN (15:00)
[2021-05-26] MEDS ORDERED: NITROGLYCERIN 0.4 MG/TAB BOTTLE SL PRN (15:00)
[2021-05-26] MEDS ORDERED: Z GUARD REMEDY 4 OZ OINT TP PRN (15:00)
[2021-05-26] MEDS ORDERED: ZOLPIDEM TARTRATE 5 MG TABLET PO PRN (15:00)
[2021-05-26] MEDS ORDERED: MAGNESIUM HYDROXIDE 30 ML UDC PO PRN (15:00)
[2021-05-26] MEDS ORDERED: MAG HYDROX/AL HYDROX/SIMETH 30 ML UDC PO PRN (15:00)
[2021-05-26] MEDS ORDERED: MECLIZINE HCL 25 MG TABLET PO PRN (15:30)
--- NOTE | 2021-05-26 15:47 | NUR ---
REPORT GIVEN TO JONH GONZALEZ FOR LOGAN
[2021-05-26] MEDS ORDERED: ENOXAPARIN SODIUM 40 MG/0.4 ML DISP.SYRIN SQ ONE (15:51)
--- NOTE | 2021-05-26 16:28 | NUR ---
TRANSFERRED TO ROOM 315 IN STABLE CONDITION
[2021-05-26 16:30] VITALS: BP 146/84
--- NOTE | 2021-05-26 16:30 | NUR ---
RN NOTE- PT ON UNIT. BEGIN ADMISSION PROCESS
--- NOTE | 2021-05-26 16:35 | NUR ---
MEDICAL SUPERVISOR NOTE- PT ADMITTED FROM ED TODAY FOR CHEST PAIN BEGINNING THIS AM. PT W RECENT HOSPITALIZATION AT [facility] FOR CHEST PAIN PREVIOUSLY. PT W PMHX - CP, HTN, HLD, ANXIETY, DIVERTICULITIS. PT HAS HAD COVID VACCINES, HE HAS NKA AND IS AOX4, CALM COOPERATIVE, AMBULATORY W INTACT SKIN. ADMITTED FOR CP/ MONITORING AND TELE. VS- BP- 146/84, HR- 84, RR- 18, T- 97.6, 02 SATS AT 97% ON 2LPM VIA WI. ORDERS ENTERED AND COMPLIED WITH, SIDE RAILS UP, PT COMFORTABLE, CALL LIGHT IN REACH. MONITOR / ASSIST
[2021-05-26] MEDS: METOPROLOL TARTRATE 50 MG TABLET PO SCH (17:09)
[2021-05-26] MEDS: MORPHINE SULFATE INJ 2 MG/ML DISP.SYRIN IV PRN ×2 (18:18→22:30)
--- NOTE | 2021-05-26 18:56 | NUR ---
RN CLOSING NOTE- PT AOX4, PAIN TO CHEST DECREASED W MORPHINE IVP, PO INTAKE GOOD, VS STABLE, NEEDS ATTENDED, SIDE RAILS UP, BED LOCKED, SAMEER; LIGHT IN REACH. MONITOR / ASSIST
--- NOTE | 2021-05-26 19:42 | NUR ---
BASE PLY HAND OPENING NOTES: RECEIVED PATIENT AWAKE IN BED, BED IN LOW POSITION, CALL LIGHTS WITHIN REACH, NO COMPLAIN OF PAIN AND DISCOMFORT AT THIS TIME, ON ROOM AIR SATURATING WELL, ON TELE MONITORING SR-68 NO SYMPTOMS WAS OBSERVED, PATIENT IS A/OX4 AMBULATORY REMIND RESIDENT TO CALL IF NEEDED ASSISTANCE OR SUPERVISION, WITH IV LINE AT RAC#20 SL , PATIENT KEPT CLEAN AND DRY ALL NEEDS MET WILL CONTINUE TO MONITOR.
[2021-05-26 20:00] VITALS: BP 126/75
[2021-05-26] MEDS: ATORVASTATIN 10 MG TABLET PO SCH (22:14)
--- NOTE | 2021-05-26 23:40 | NUR ---
RN NOTES: PATIENT COMPLAIN OF ABDOMINAL PAIN PER PT. PS-10 2ND DOSE OF MORPHINE GIVEN AT 2230 CONTINUE TO MONITOR.
[2021-05-27] VITALS: BP 122/71
[2021-05-27 04:00] VITALS: BP 90/58
[2021-05-27 06:22] LABS: BASOPHILS % (AUTO) 0.8 % (0.0-2.0); EOSINOPHILS % (AUTO) 3.1 % (0.0-6.0); HEMATOCRIT 39 % (39-51); HEMOGLOBIN 13.5 g/dL (13.5-17.5); LYMPHOCYTES # (AUTO) 1.1 K/uL (0.8-4.8); LYMPHOCYTES % (AUTO) 22.5 % (20.0-44.0); MEAN CORPUSCULAR HGB CONC 35 g/dl (31.0-36.0); MEAN CORPUSCULAR VOLUME 95 fL (80-96); MONOCYTES # (AUTO) 0.8 K/uL (0.1-1.30); MONOCYTES % (AUTO) 17.3 % (2.0-12.0); NEUTROPHILS # (AUTO) 2.6 K/uL (1.8-8.9); NEUTROPHILS % (AUTO) 56.3 % (43.0-81.0); PLATELET COUNT (AUTO) 337 K/uL (150-450); RED BLOOD CELL COUNT(AUTO) 4.11 MIL/uL (4.5-6.0); WHITE BLOOD COUNT (AUTO) 4.7 K/uL (4.3-11.0)
--- NOTE | 2021-05-27 07:19 | NUR ---
[facility] CLOSING NOTES: PATIENT SLEEP IN BED COMFORTABLY, AROUSABLE TOV ERBAL STIMULI, BED IN LOW POSITION, CALL LIGHTS WITHIN REACH,PATIENT IS A/OX4 ABLE TO MAKE NEEDS KNOWN, NO COMPLAIN OF PAIN AND DISCOMFORT AT THIS TIME, ON TELE MONITORING SR-68, ON BED REST, WITH IV LINE AT RAC#20 SL, PATIENT KEPT CLEAN AND DRY ALL NEEDS MET ENDORSE TO INCOMING SHIFT.
[2021-05-27 07:24] LABS: CALCIUM, SERUM 8.9 mg/dL (8.5-10.1); CREATININE 0.8 mg/dL (0.6-1.3); MAGNESIUM 2.2 mg/dL (1.8-2.4); PHOSPHORUS 4.7 mg/dL (2.5-4.9); POTASSIUM 4.1 mmol/L (3.5-5.1)
[2021-05-27 08:00] VITALS: BP 105/63
--- NOTE | 2021-05-27 08:00 | NUR ---
RN NOTES PATIENT RESTING IN BED, A/O X4, UGANDAN-SPEAKING, UNDERSTANDS [place]UWAIT[place]. NOT IN ACUTE DISTRESS. AMBULATES W/ STEADY GAIT. SR ON TELE MONITOR. NO COMPLAINT OF PAIN AT THIS TIME. SAFETY MEASURES IN PLACE. WILL CONTINUE TO MONITOR.
[2021-05-27] MEDS: METOPROLOL TARTRATE 50 MG TABLET PO SCH ×2 (08:20→17:00)
[2021-05-27] MEDS: PANTOPRAZOLE 40 MG TABLET.DR PO SCH (08:20)
[2021-05-27] MEDS: ASPIRIN EC 81 MG TABLET.DR PO SCH (08:20)
[2021-05-27] MEDS: LISINOPRIL (5MG) 5 MG TABLET PO SCH (08:21)
[2021-05-27] MEDS: HYDROCODONE/APAP 5/325MG TABLET PO PRN (09:27)
[2021-05-27 09:30] LABS: LYMPHOCYTES % (MANUAL) 19 % (16-48)
[2021-05-27 09:31] LABS: EOSINOPHILS % (MANUAL) 6 % (0-4); MONOCYTES % (MANUAL) 14 % (0-11.0); NEUTROPHILS % (MANUAL) 61 (42-76)
[2021-05-27 12:00] VITALS: BP 152/96
--- NOTE | 2021-05-27 12:12 | NUR ---
RN NOTES PATIENT SEEN BY DR. GO TODAY; FOR PSYCH CONSULT W/ DR. DEL VALLE.
[2021-05-27] MEDS: IV NS 0.9% 1,000 ML IV PRN (13:52)
--- NOTE | 2021-05-27 14:09 | NUR ---
SS Note: MILLIE discussed with nurseDane that psych consult order and hold to be faxed to [facility] FAX: [phone] [facility] for on-call psychiatrist Dr. Gottlieb to see patient. Bella stated he will fax documents.
[2021-05-27] MEDS: ENOXAPARIN SODIUM 40 MG/0.4 ML DISP.SYRIN SQ SCH (14:30)
[2021-05-27 16:00] VITALS: BP 100/62
--- NOTE | 2021-05-27 18:50 | NUR ---
RN NOTES PATIENT RESTING IN BED, AWAKE AND VERBALLY RESPONSIVE. NOT IN ACUTE DISTRESS. BREATHING EVEN AND UNLABORED, CONTINUES ON ROOM AIR. DUE MEDS GIVEN TODAY. IVF INFUSING WELL. SR ON TELE, NO CARDIAC DISTRESS. SAFETY MEASURES MAINTAINED. WILL ENDORSE TO SUMO WRESTLER RN FOR LOGAN.
--- NOTE | 2021-05-27 19:30 | NUR ---
RN OPENING NOTE PATIENT IN BED AWAKE, ABLE TO MAKE NEEDS KNOWN. PATIENT IS CURRENTLY ON RA, TOLERATING WELL NOT IN ANY APPARENT DISTRESS. PATIENT'S TELE MONITOR READS SR 75 BPM. PATIENT DOES NOT COMPLAIN OF CHEST PAIN BUT COMPLAINS OF L SHOULDER PAIN 10/29. PATIENT HAS A RAC 20 G WITH NS @75 ML/HR. SAFETY MEASURES IN PLACE: BED LOCKED AND IN LOWEST POSITION, CALL LIGHT WITHIN REACH, SIDE RAILS UP. WILL MONITOR PATIENT CLOSELY.
[2021-05-27 20:00] VITALS: BP 132/72
--- NOTE | 2021-05-27 20:05 | NUR ---
RN NOTE NOTIFIED MD REGARDING SHOULDER PAIN 10/29 AND PATIENT REQUESTING MORPHINE. SCHEDULER MD NICOLA RICKETTS ORDERED MORPHINE 2 MG IV Q6H PRN MODERATE TO SEVERE PAIN VIA TEL. ORDER. ORDER READ BACK. AWAITING PHARMACY VERIFICATION
[2021-05-27] MEDS: ATORVASTATIN 10 MG TABLET PO SCH (21:01)
[2021-05-27] MEDS: MORPHINE SULFATE INJ 2 MG/ML DISP.SYRIN IV PRN (21:01)
--- NOTE | 2021-05-27 21:06 | NUR ---
RN NOTE PATIENT GIVEN THE MORPHINE FOR SEVERE PAIN. WILL REASSESS EFFECTIVENESS
[2021-05-28] VITALS: BP 121/89
[2021-05-28 04:00] VITALS: BP 117/75
[2021-05-28] MEDS: MORPHINE SULFATE INJ 2 MG/ML DISP.SYRIN IV PRN ×3 (05:17→19:50)
--- NOTE | 2021-05-28 05:20 | NUR ---
RN NOTE PATIENT GIVEN THE MORPHINE 2 MG FOR 9/10 PAIN ON L SHOULDER. WILL REASSESS EFFECTIVENESS AT A LATER TIME
[2021-05-28 06:23] LABS: BASOPHILS % (AUTO) 0.7 % (0.0-2.0); EOSINOPHILS % (AUTO) 2.9 % (0.0-6.0); HEMATOCRIT 38 % (39-51); HEMOGLOBIN 13.1 g/dL (13.5-17.5); LYMPHOCYTES % (AUTO) 18.9 % (20.0-44.0); MEAN CORPUSCULAR HGB CONC 35 g/dl (31.0-36.0); MEAN CORPUSCULAR VOLUME 94 fL (80-96); MONOCYTES # (AUTO) 0.8 K/uL (0.1-1.30); MONOCYTES % (AUTO) 15.4 % (2.0-12.0); NEUTROPHILS # (AUTO) 3.4 K/uL (1.8-8.9); NEUTROPHILS % (AUTO) 62.1 % (43.0-81.0); PLATELET COUNT (AUTO) 346 K/uL (150-450); RED BLOOD CELL COUNT(AUTO) 4.01 MIL/uL (4.5-6.0); WHITE BLOOD COUNT (AUTO) 5.4 K/uL (4.3-11.0)
[2021-05-28 06:45] LABS: CALCIUM, SERUM 8.9 mg/dL (8.5-10.1); CREATININE 0.6 mg/dL (0.6-1.3); MAGNESIUM 2.3 mg/dL (1.8-2.4); PHOSPHORUS 4.6 mg/dL (2.5-4.9); POTASSIUM 3.7 mmol/L (3.5-5.1)
--- NOTE | 2021-05-28 06:53 | NUR ---
RN CLOSING NOTE PATIENT IN BED EYES CLOSED, ABLE TO MAKE NEEDS KNOWN. PATIENT IS CURRENTLY ON RA, TOLERATING WELL NOT IN ANY APPARENT DISTRESS. PATIENT'S TELE MONITOR READS SR 80 BPM. PATIENT DOES NOT COMPLAIN OF ANY CHEST PAIN AT THIS TIME. PAIN MANAGED WITH MORPHINE Q6HR PRN. PATIENT HAS A RAC 20 G WITH NS @75 ML/HR. SAFETY MEASURES IN PLACE: BED LOCKED AND IN LOWEST POSITION, CALL LIGHT WITHIN REACH, SIDE RAILS UP. ALL NEEDS MET AND ATTENDED. ALL ORDERS CARRIED OUT. WILL ENDORSE TO DAY SHIFT NURSE FOR LOGAN.
--- NOTE | 2021-05-28 07:33 | NUR ---
BANQUET MANAGER OPENING NOTE RECEIVED PATIENT IN BED AWAKE, ABLE TO MAKE NEEDS KNOWN. PATIENT IS CURRENTLY ON RA, TOLERATING WELL NOT IN ANY APPARENT DISTRESS. PATIENT'S TELE MONITOR READS SR 67 BPM. NO COMPLAINS OF PAIN AT THIS TIME. RAC IV ACCESS G #20 WITH RUNNING NS @75 ML/HR. SAFETY MEASURES IN PLACE: BED LOCKED AND IN LOWEST POSITION, CALL LIGHT WITHIN REACH, SIDE RAILS UP. WILL CONTINUE TO MONITOR PATIENT.
[2021-05-28] MEDS: PANTOPRAZOLE 40 MG TABLET.DR PO SCH (08:08)
[2021-05-28] MEDS: METOPROLOL TARTRATE 50 MG TABLET PO SCH ×2 (08:09→16:17)
[2021-05-28] MEDS: LISINOPRIL (5MG) 5 MG TABLET PO SCH (08:09)
[2021-05-28] MEDS: ASPIRIN EC 81 MG TABLET.DR PO SCH (08:09)
[2021-05-28 08:16] VITALS: BP 132/77
[2021-05-28 11:20] LABS: EOSINOPHILS % (MANUAL) 1 % (0-4); LYMPHOCYTES % (MANUAL) 16 % (16-48); MONOCYTES % (MANUAL) 18 % (0-11.0); NEUTROPHILS % (MANUAL) 65 (42-76)
[2021-05-28 12:01] VITALS: BP 139/91
[2021-05-28 12:26] LABS: THYROID STIMULATING HORMONE 0.816 uIU/mL (0.358-3.74); URIC ACID 4.1 mg/dL (2.6-7.2)
--- NOTE | 2021-05-28 12:28 | NUR ---
GRINDING MACHINE OPERATOR PORTABLE NOTES PATIENT REPORTING SHOULDER PAIN 10/10. REQUESTING PAIN MEDICATION. WILL ADMINISTER PRN MORPHINE AND REASSESS.
[2021-05-28] MEDS: ENOXAPARIN SODIUM 40 MG/0.4 ML DISP.SYRIN SQ SCH (14:41)
[2021-05-28 16:12] VITALS: BP 148/98
[2021-05-28] MEDS: SERTRALINE HCL 50 MG TABLET PO SCH (16:17)
[2021-05-28] MEDS ORDERED: SERT50TA PO (17:05)
[2021-05-28] MEDS: ONDANSETRON HCL/PF 4 MG/2 ML VIAL IVP PRN (17:16)
[2021-05-28 20:00] VITALS: BP 138/84
--- NOTE | 2021-05-28 20:00 | NUR ---
MS RN OPENING NOTE PATIENT AWAKE IN BED, ALERT/ORIENTED X 4, PT ABLE TO MAKE NEEDS KNOWN. PATIENT REPORTING 10/10 SHARP ABDOMINAL PAIN, MORPHINE 2 MG IV GIVEN ORDERED. PT STABLE ON RA, NO S/S OF DISTRESS OR SOB NOTED, BREATHING EVEN AND UNLABORED. IV ACCESS ON LEFT AC #20G INTACT AND INFUSING NS @ 75 ML/HR. PATIENT AMBULATORY WITH STEADY GAIT, PT HAS BRP. SAFETY MEASURES IN PLACE: CALL LIGHT WITHIN REACH, SIDE RAILS UP X 2, BED LOCKED IN LOW POSITION. WILL CONTINUE TO MONITOR PATIENT
--- NOTE | 2021-05-28 20:37 | NUR ---
MS RN NOTE PATIENT THREW UP A LITTLE RED BLOOD, STATES HE FEELS DIZZY AND WEAK. NOTIFIED HYDROGRAPHICAL TECHNICAL OFFICER MD WITH NEW ORDER FOR STAT CT OF ABDOMEN AND PELVIS. WILL CONTINUE TO MONITOR PATIENT
[2021-05-28] MEDS ORDERED: IOHEXOL-300 100 ML VIAL IV ONE ×2 (21:01→21:25)
[2021-05-28] MEDS ORDERED: IV NS 0.9% 250 ML IV ONE ×2 (21:01→21:25)
--- NOTE | 2021-05-28 21:20 | NUR ---
MS RN NOTE PATIENT TAKEN TO CT BY ELEAZAR IN STABLE CONDITION
[2021-05-28] MEDS ORDERED: CT SWABBABLE VALVE TRANS SET 1 EA INFUS.SET MC ONE (21:25)
[2021-05-28] MEDS: ATORVASTATIN 10 MG TABLET PO SCH (21:58)
[2021-05-28] MEDS: HYDROCODONE/APAP 5/325MG TABLET PO PRN (21:58)
--- NOTE | 2021-05-28 22:00 | NUR ---
MS RN NOTE PATIENT CAME FROM CT IN STABLE CONDITION, PATIENT REPORTING 7/10 ABDOMINAL PAIN DESPITE MORPHINE GIVEN 2 HOURS AGO, NORCO 5-325 MG PO GIVEN ORDERED. WILL CONTINUE TO MONITOR PATIENT
[2021-05-28 23:03] LABS: ALBUMIN 4.3 g/dL (3.4-5.0); BILIRUBIN,TOTAL 0.6 mg/dL (0.2-1.0); CALCIUM, SERUM 8.9 mg/dL (8.5-10.1); CREATININE 0.7 mg/dL (0.6-1.3); POTASSIUM 4.2 mmol/L (3.5-5.1); TOTAL PROTEIN, SERUM 7.9 g/dL (6.4-8.2)
[2021-05-29] MEDS: IV NS 0.9% 1,000 ML IV PRN ×2 (00:12→15:08)
[2021-05-29] MEDS: MORPHINE SULFATE INJ 2 MG/ML DISP.SYRIN IV PRN ×3 (03:04→19:55)
--- NOTE | 2021-05-29 06:43 | NUR ---
MS RN CLOSING NOTE PATIENT SLEEPING IN BED, PT ALERT/ORIENTED X 4, PT ABLE TO MAKE NEEDS KNOWN. PT STABLE ON RA, NO S/S OF DISTRESS OR SOB NOTED, BREATHING EVEN AND UNLABORED. NO MORE EPISODES OF THROWING UP BLOOD THE REST OF SHIFT. RESULTS OF CT ABDOMEN/PELVIS AND XR LEFT SHOULDER STILL PENDING. IV ACCESS ON RIGHT AC #20G INTACT AND INFUSING NS @ 75 ML/HR. PATIENT IS AMBULATORY TO BATHROOM. MEDICATIONS GIVEN ORDERED, PT NEEDS MET THROUGHOUT SHIFT. SAFETY MEASURES IN PLACE: CALL LIGHT WITHIN REACH, SIDE RAILS UP X 2, BED LOCKED IN LOW POSITION. WILL ENDORSE TO DAY SHIFT NURSE FOR CONTINUITY OF CARE
[2021-05-29 06:44] LABS: BASOPHILS % (AUTO) 0.8 % (0.0-2.0); EOSINOPHILS % (AUTO) 2.7 % (0.0-6.0); HEMATOCRIT 37 % (39-51); MEAN CORPUSCULAR HGB CONC 35 g/dl (31.0-36.0); MEAN CORPUSCULAR VOLUME 94 fL (80-96); MONOCYTES # (AUTO) 0.8 K/uL (0.1-1.30); MONOCYTES % (AUTO) 16.7 % (2.0-12.0); NEUTROPHILS # (AUTO) 2.9 K/uL (1.8-8.9); NEUTROPHILS % (AUTO) 58.8 % (43.0-81.0); PLATELET COUNT (AUTO) 337 K/uL (150-450); RED BLOOD CELL COUNT(AUTO) 3.97 MIL/uL (4.5-6.0); WHITE BLOOD COUNT (AUTO) 4.9 K/uL (4.3-11.0)
[2021-05-29 06:56] LABS: ALBUMIN 3.7 g/dL (3.4-5.0); BILIRUBIN,TOTAL 0.6 mg/dL (0.2-1.0); CALCIUM, SERUM 8.2 mg/dL (8.5-10.1); CREATININE 0.7 mg/dL (0.6-1.3); MAGNESIUM 2.1 mg/dL (1.8-2.4); PHOSPHORUS 4.2 mg/dL (2.5-4.9); POTASSIUM 3.9 mmol/L (3.5-5.1); TOTAL PROTEIN, SERUM 7.2 g/dL (6.4-8.2)
--- NOTE | 2021-05-29 07:20 | NUR ---
MS RN OPENING NOTES RECEIVED PATIENT AWAKE IN BED IN NO ACUTE SIGNS OF DISTRESS. A/O X 4, ABLE TO MAKE NEEDS KNOWN, DENIES PAIN OR ANY DISCOMFORTS AT THIS TIME. ON RA, TOLERATING WELL WITH NO SOB NOTED, BREATHING EVEN AND UNLABORED. IV ACCESS ON RAC #20G INTACT WITH IVF OF NS @ 75 ML/HR, INFUSING WELL, NO S/S OF INFILTRATION AT SITE NOTED. SAFETY MEASURES IN PLACED: CALL LIGHT WITHIN REACH, SIDE RAILS UP X 2, BED LOCKED IN LOW POSITION. WILL CONTINUE TO MONITOR PATIENT.
[2021-05-29] MEDS: PANTOPRAZOLE 40 MG TABLET.DR PO SCH (07:48)
[2021-05-29 08:00] VITALS: BP 122/65
[2021-05-29] MEDS: SERTRALINE HCL 50 MG TABLET PO SCH (08:36)
[2021-05-29] MEDS: ASPIRIN EC 81 MG TABLET.DR PO SCH (08:36)
[2021-05-29] MEDS: METOPROLOL TARTRATE 50 MG TABLET PO SCH ×2 (08:36→16:02)
[2021-05-29] MEDS: LISINOPRIL (5MG) 5 MG TABLET PO SCH (08:37)
--- NOTE | 2021-05-29 09:45 | NUR ---
RN NOTES PT C/O ACHING AND SHARP RIGHT LOWER ABDOMEN PAIN. 8/10 SCALE. PRN MORPHINE 2MG/ML IVP ADMINISTERED AT 0943. WILL CONTINUE TO MONITOR AND REASSESS PT.
[2021-05-29] MEDS: ONDANSETRON HCL/PF 4 MG/2 ML VIAL IVP PRN (13:17)
[2021-05-29] MEDS: HYDROCODONE/APAP 5/325MG TABLET PO PRN (13:18)
--- NOTE | 2021-05-29 13:21 | NUR ---
RN NOTES PT C/O ACHING AND SHARP LEFT LOWER ABDOMEN PAIN, 7/10 SCALE. ALSO NAUSEA AND VOMITING, PRN ZOFRAN 4MG IVP AND NORCO ADMINISTERED AT 1381. WILL CONTINUE TO MONITOR AND REASSESS PT.
[2021-05-29] MEDS: ENOXAPARIN SODIUM 40 MG/0.4 ML DISP.SYRIN SQ SCH (14:47)
[2021-05-29 16:00] VITALS: BP 144/80
[2021-05-29 16:22] LABS: HEMOGLOBIN 12.9 g/dL (13.5-17.5)
[2021-05-29 16:38] LABS: BAND % (MANUAL) 3 % (0.0-5.0); EOSINOPHILS % (MANUAL) 1 % (0-4); LYMPHOCYTES % (MANUAL) 20 % (16-48); MONOCYTES % (MANUAL) 7 % (0-11.0); NEUTROPHILS % (MANUAL) 69 (42-76)
--- NOTE | 2021-05-29 18:35 | NUR ---
MS RN CLOSING NOTES PATIENT RESTING IN BED AWAKE AND WATCHING TV AT THIS TIME. A/O X 4, ABLE TO MAKE NEEDS KNOWN. AMBULATORY. ON ROOM AIR, TOLERATING WELL WITH NO SOB NOTED, BREATHING EVEN AND UNLABORED. IV ACCESS ON RAC #18G INTACT WITH IVF OF NS @ 75 ML/HR INFUSING WELL, NO S/S OF INFILTRATION AT SITE NOTED. ALL NEEDS AND CARE ATTENDED WELL. SAFETY MEASURES KEPT IN PLACED: CALL LIGHT WITHIN REACH, SIDE RAILS UP X 2, BED LOCKED IN LOW POSITION. WILL ENDORSE LOGAN TO BUSINESS SERVICES TECH NURSE.
--- NOTE | 2021-05-29 19:08 | NUR ---
MS RN OPENING NOTES PATIENT RESTING IN BED AWAKE AND WATCHING TV AT THIS TIME. A/O X 4, ABLE TO MAKE NEEDS KNOWN. AMBULATORY. ON ROOM AIR, TOLERATING WELL WITH NO SOB NOTED, BREATHING EVEN AND UNLABORED. IV ACCESS ON RAC #18G INTACT WITH IVF OF NS @ 75 ML/HR INFUSING WELL, NO S/S OF INFILTRATION AT SITE NOTED. ALL NEEDS AND CARE ATTENDED WELL. SAFETY MEASURES KEPT IN PLACED: CALL LIGHT WITHIN REACH, SIDE RAILS UP X 2, BED LOCKED IN LOW POSITION. WILL CONTINUE TO MONITOR.
[2021-05-29 20:00] VITALS: BP 115/63
--- NOTE | 2021-05-29 20:03 | NUR ---
MS RN NOTES PAIN MEDICATION GIVEN FOR 8/10 PAIN TOLERATED WELL. WILL CONTINUE TO MONITOR.
[2021-05-29] MEDS: ATORVASTATIN 10 MG TABLET PO SCH (21:52)
[2021-05-30] MEDS: MORPHINE SULFATE INJ 2 MG/ML DISP.SYRIN IV PRN ×2 (04:24→11:39)
--- NOTE | 2021-05-30 04:29 | NUR ---
MS RN NOTES PAIN MEDICATION GIVEN FOR 8/10 PAIN TOLERATED WELL. WILL CONTINUE TO MONITOR.
--- NOTE | 2021-05-30 06:38 | NUR ---
MS RN CLOSING NOTES PATIENT RESTING IN BED AWAKE AND WATCHING TV AT THIS TIME. A/O X 4, ABLE TO MAKE NEEDS KNOWN. AMBULATORY. ON ROOM AIR, TOLERATING WELL WITH NO SOB NOTED, BREATHING EVEN AND UNLABORED. IV ACCESS ON RAC #18G INTACT WITH IVF OF NS @ 75 ML/HR INFUSING WELL, NO S/S OF INFILTRATION AT SITE NOTED. ALL NEEDS AND CARE ATTENDED WELL. SAFETY MEASURES KEPT IN PLACED: ALL DUE MEDS GIVEN AND TOLERATED WELL.CALL LIGHT WITHIN REACH, SIDE RAILS UP X 2, BED LOCKED IN LOW POSITION. WILL ENDORSE TO DAY SHIFT NURSE.
[2021-05-30 06:54] LABS: CALCIUM, SERUM 8.3 mg/dL (8.5-10.1); CREATININE 0.8 mg/dL (0.6-1.3); PHOSPHORUS 4.3 mg/dL (2.5-4.9)
--- NOTE | 2021-05-30 07:30 | NUR ---
MS RN OPENING NOTES PATIENT RESTING IN BED, AWAKE, A/O X 4. REMAINS ON ROOM AIR WITH NO S/SX OF RESPIRATORY DISTRESS NOTED. NO PAIN VERBALIZED AT THIS TIME. IV ACCESS ON R AC #18G INTACT WITH NS RUNNING @ 75 ML/HR, NO S/SX OF INFILTRATION AT SITE NOTED. SAFETY MEASURES IN PLACE: BED IN LOWEST POSITION, WHEELS LOCKED, SIDE RAILS UP X2, CALL LIGHT WITHIN REACH. WILL CONTINUE TO MONITOR PATIENT.
[2021-05-30 07:45] LABS: BASOPHILS % (AUTO) 0.8 % (0.0-2.0); EOSINOPHILS % (AUTO) 3.2 % (0.0-6.0); HEMATOCRIT 35 % (39-51); HEMOGLOBIN 12.2 g/dL (13.5-17.5); LYMPHOCYTES # (AUTO) 1.1 K/uL (0.8-4.8); LYMPHOCYTES % (AUTO) 21.5 % (20.0-44.0); MEAN CORPUSCULAR HGB CONC 35 g/dl (31.0-36.0); MEAN CORPUSCULAR VOLUME 94 fL (80-96); MONOCYTES # (AUTO) 0.8 K/uL (0.1-1.30); MONOCYTES % (AUTO) 15.2 % (2.0-12.0); NEUTROPHILS % (AUTO) 59.3 % (43.0-81.0); PLATELET COUNT (AUTO) 324 K/uL (150-450); RED BLOOD CELL COUNT(AUTO) 3.76 MIL/uL (4.5-6.0)
[2021-05-30 08:00] VITALS: BP 146/89
[2021-05-30] MEDS: SERTRALINE HCL 50 MG TABLET PO SCH (08:30)
[2021-05-30] MEDS: PANTOPRAZOLE 40 MG TABLET.DR PO SCH (08:31)
[2021-05-30] MEDS: LISINOPRIL (5MG) 5 MG TABLET PO SCH (08:31)
[2021-05-30] MEDS: METOPROLOL TARTRATE 50 MG TABLET PO SCH ×2 (08:31→17:00)
[2021-05-30] MEDS ORDERED: PANT40TA2 PO (11:24)
[2021-05-30] MEDS ORDERED: CALCIUM CARBONATE 500 MG TAB.CHEW PO SCH (11:30)
[2021-05-30] MEDS: ONDANSETRON HCL/PF 4 MG/2 ML VIAL IVP PRN (11:38)
[2021-05-30] MEDS: ENOXAPARIN SODIUM 40 MG/0.4 ML DISP.SYRIN SQ SCH (15:00)
[2021-05-30 16:00] VITALS: BP 118/71
--- NOTE | 2021-05-30 18:50 | NUR ---
DIRECTOR ADVERTISING NOTES PATIENT MEDICALLY STABLE FOR DISCHARGE. DISCHARGE INSTRUCTIONS PROVIDED AND EXIT CARE PACKET PROVIDED. PATIENT VERBALIZED UNDERSTANDING OF DISCHARGE. ALL BELONGINGS ACCOUNTED FOR AND DOCUMENTS SIGNED. ID BAND AND LINES REMOVED. PATIENT LEFT HOSPITAL VIA TAXI.
== END 2021-05-30 19:05 | disposition home or self-care (01) | DRG 347 ==
LOC: ER 12:09 → TELE 15:04 → MED 05-28 18:09
DX: M47.812 Spondylosis without myelopathy or radiculopathy, cervical region (principal); E22.2 Syndrome of inappropriate secretion of antidiuretic hormone; F33.1 Major depressive disorder, recurrent, moderate; R04.2 Hemoptysis; M47.816 Spondylosis without myelopathy or radiculopathy, lumbar region; M94.0 Chondrocostal junction syndrome [Tietze]; E78.5 Hyperlipidemia, unspecified; I10 Essential (primary) hypertension; I25.10 Atherosclerotic heart disease of native coronary artery without angina pectoris; Z20.822 Contact with and (suspected) exposure to COVID-19; E86.1 Hypovolemia; K21.9 Gastro-esophageal reflux disease without esophagitis; K57.30 Diverticulosis of large intestine without perforation or abscess without bleeding; N40.0 Benign prostatic hyperplasia without lower urinary tract symptoms; M25.559 Pain in unspecified hip; Z79.899 Other long term (current) drug therapy
CPT/HCPCS: 36415; 71045-TC; 73030-TC; 80048-TC; 80053-TC; 80076-TC; 82533; 83690-TC; 83735-TC; 84100-TC; 84443-TC; 84484-TC; 84550-TC; 85025-TC; 85027-TC; 87081-TC; 97116-TC; 97530-TC; C9803; G0378; J1650; J2270; J2405; J7030; J7050; Q9967

== ENCOUNTER 2021-06-03 15:10 | Inpatient (IN) | payer MEDICAID ==
[~2021-06-03] VITALS: Ht 167.6 cm; Wt 78.5 kg
[~2021-06-03 15:10] MED LIST changes: +PANT40TA2 PO; +SERT50TA PO
--- NOTE | 2021-06-03 17:15 | NUR ---
RN MS NOTES RECEIVED PT FROM AMBULANCE STAFF VIA [facility], PT IS AWAKE, ALERT AND ORIENTED, WITH COMPLAINT OF SOME PAIN AT EPIGASTRIC AREA, DENIES NAUSEA, RESPIRATIONS NORMAL, ON ROOM AIR, PT ASSISTED TO BED, MADE COMFORTABLE, ROOM SET UP ORIENTATION PROVIDED TO PT. VERBALIZED UNDERSTANDING, VITAL SIGNS TAKEN AND RECORDED, DR. LEES INFORMED OF PT'S ARRIVAL, AWAITING FOR ADMITTING ORDERS FROM .
[2021-06-03 17:20] VITALS: BP 140/95
[2021-06-03] MEDS ORDERED: ACETAMINOPHEN 325 MG TABLET PO PRN (18:00)
[2021-06-03] MEDS ORDERED: ZOLPIDEM TARTRATE 5 MG TABLET PO PRN (18:00)
[2021-06-03] MEDS ORDERED: Z GUARD REMEDY 4 OZ OINT TP PRN ×2 (18:00→18:30)
[2021-06-03] MEDS ORDERED: MAGNESIUM HYDROXIDE 30 ML UDC PO PRN (18:00)
[2021-06-03] MEDS ORDERED: MAG HYDROX/AL HYDROX/SIMETH 30 ML UDC PO PRN (18:00)
--- NOTE | 2021-06-03 18:54 | NUR ---
RN MS NOTES PT AWAKE, ALERT AND ORIENTED, ABLE TO MAKE NEEDS KNOWN, SITTING AT THE BED, ABLE TO AMBULATE NEEDED, TOLERATES ROOM AIR, AWAITING FURTHER ORDERS FROM MD, NEEDS ATTENDED.
--- NOTE | 2021-06-03 19:12 | NUR ---
RN MS NOTES ASKED DR. LEES IF HE WOULD LIKE TO ORDER IV FLUIDS SINCE PT IS NPO AND HAS LOW SODIUM, MD ORDERED TO START NS AT 100ML/HR, NOTED AND CARRIED OUT, ALSO ASKED MD IF HE WOULD LIKE TO ORDER IV PAIN MEDS AND IV HTN MEDS, MD SAID TO MONITOR THEM FOR NOW.
--- NOTE | 2021-06-03 19:36 | NUR ---
MS RN OPENING NOTE RECEIVED PT AWAKE IN BED. A/O X4, WALLISIAN SPEAKING. ABLE TO MAKE NEEDS KNOWN. PT STABLE ON ROOM AIR. NO SOB OR S/S OR RESPIRATORY DISTRESS NOTED. PT DENIES NAUSEA AND VOMITING AT THIS TIME. IV ACCESS RAC 20 GAUGE RUNNING NS @ 100 ML/HR. SAFETY PRECAUTIONS IN PLACE. BED IN LOWEST LOCKED POSITION, HOB ELEVATED, SIDE RAILS UP X2, AND CALL LIGHT AND TABLE WITHIN REACH. WILL CONTINUE WITH PLAN OF CARE.
[2021-06-03] MEDS: IV NS 0.9% 1,000 ML IV PRN (19:44)
[2021-06-03 19:54] VITALS: BP 158/84
--- NOTE | 2021-06-03 20:42 | NUR ---
RN NOTE PT BP WAS 158/84. INFORMED DR CAMPO AND GIVEN ORDERS FOR PRN BP MEDICATION. ORDERS NOTED AND CARRIED OUT. WILL CONTINUE WITH PLAN OF CARE.
--- NOTE | 2021-06-03 20:45 | NUR ---
RN NOTE PT BP 158/84 AND TRENDING HIGH FOR THE PAST COUPLE DAYS. INFORMED BEAM DOFFER DR CAMPO AND OBTAINED AND CARRIED OUT NEW ORDERS. WILL CONTINUE WITH PLAN OF CARE.
--- NOTE | 2021-06-04 00:20 | NUR ---
RN NOTE PATIENT COMPLAINED OF PAIN 8/[address] CAMPO WITH NEW ORDERS NOTED AND CARRIED OUT. WILL CONTINUE WITH PLAN OF CARE.
[2021-06-04] MEDS ORDERED: hydrALAZINE HCL 25 MG TABLET PO PRN (00:30)
[2021-06-04] MEDS: MORPHINE SULFATE INJ 2 MG/ML DISP.SYRIN IV PRN ×4 (00:50→20:57)
--- NOTE | 2021-06-04 00:50 | NUR ---
RN NOTE PT COMPLAINED OF LUQ PAIN 10/29. ADMINISTERED MORPHINE 2 MG IV ORDERED FOR SEVERE PAIN. WILL CONTINUE WITH PLAN OF CARE.
--- NOTE | 2021-06-04 06:11 | NUR ---
RN NOTE PT NOTED TO HAVE SMALL AMOUNT OF BRIGHT RED SPIT. INFORMED DR CAMPO WITH ORDER TO CHECK HEMOGLOBIN. LABS ALREADY DRAWN. WILL ENDORSE TO ONCOMING NURSE TO MONITOR HEMOGLOBIN.
[2021-06-04] MEDS: IV NS 0.9% 1,000 ML IV PRN ×2 (06:12→21:00)
--- NOTE | 2021-06-04 06:35 | NUR ---
MS RN CLOSING NOTE PT AWAKE IN BED. A/O X4, EQUATORIAL GUINEAN SPEAKING. ABLE TO MAKE NEEDS KNOWN. PT STABLE ON ROOM AIR. NO SOB OR S/S OR RESPIRATORY DISTRESS NOTED. IV ACCESS RAC 20 GAUGE RUNNING NS @ 100 ML/HR. NPO STATUS MAINTAINED AT ALL TIMES. ALL NEEDS MET AT THIS TIME. SAFETY PRECAUTIONS IN PLACE AT ALL TIMES. BED IN LOWEST LOCKED POSITION, HOB ELEVATED, SIDE RAILS UP X2, AND CALL LIGHT AND TABLE WITHIN REACH. WILL ENDORSE TO ONCOMING NURSE FOR LOGAN.
[2021-06-04 06:50] LABS: BASOPHILS % (AUTO) 0.8 % (0.0-2.0); EOSINOPHILS % (AUTO) 2.6 % (0.0-6.0); HEMATOCRIT 37 % (39-51); LYMPHOCYTES # (AUTO) 1.2 K/uL (0.8-4.8); LYMPHOCYTES % (AUTO) 26.4 % (20.0-44.0); MEAN CORPUSCULAR HGB CONC 35 g/dl (31.0-36.0); MEAN CORPUSCULAR VOLUME 94 fL (80-96); MONOCYTES # (AUTO) 0.8 K/uL (0.1-1.30); MONOCYTES % (AUTO) 19.1 % (2.0-12.0); NEUTROPHILS # (AUTO) 2.2 K/uL (1.8-8.9); NEUTROPHILS % (AUTO) 51.1 % (43.0-81.0); PLATELET COUNT (AUTO) 315 K/uL (150-450); RED BLOOD CELL COUNT(AUTO) 3.99 MIL/uL (4.5-6.0); WHITE BLOOD COUNT (AUTO) 4.4 K/uL (4.3-11.0)
[2021-06-04 07:19] LABS: CALCIUM, SERUM 9.2 mg/dL (8.5-10.1); CREATININE 0.8 mg/dL (0.6-1.3); MAGNESIUM 1.9 mg/dL (1.8-2.4); PHOSPHORUS 4.6 mg/dL (2.5-4.9); POTASSIUM 3.8 mmol/L (3.5-5.1)
--- NOTE | 2021-06-04 08:02 | NUR ---
RN NOTES PATIENT SEEN BY DR. LEES TODAY, MADE AWARE OF PLAN OF CARE. PER MD, GI HAS BEEN CONTACTED FOR GI CONSULT.
[2021-06-04] MEDS: PANTOPRAZOLE 40 MG VIAL IV SCH ×2 (08:58→16:44)
--- NOTE | 2021-06-04 09:49 | NUR ---
Verification of Admission: MILLIE received call from pt.'s nurse Dane that pt. has court hearing today and is requesting letter to verify hospital admission. MILLIE completed letter and Dane picked it up to provide to pt. SS will be available as needed.
[2021-06-04 10:17] LABS: BAND % (MANUAL) 4 % (0.0-5.0); LYMPHOCYTES % (MANUAL) 30 % (16-48); MONOCYTES % (MANUAL) 19 % (0-11.0)
[2021-06-04 10:18] LABS: EOSINOPHILS % (MANUAL) 4 % (0-4); NEUTROPHILS % (MANUAL) 43 (42-76)
--- NOTE | 2021-06-04 14:44 | NUR ---
RN NOTES OK TO EAT FOR NOW PER CHARGE NURSE; NO SCHEDULED GI PROCEDURE AT THIS TIME.
--- NOTE | 2021-06-04 19:45 | NUR ---
MS RN OPENING NOTES RECEIVED PATIENT LAYING AWAKE IN BED. A/O X4. PATIENT WITH REGULAR AND UNLABORED BREATHING ON ROOM AIR TOLERATED WELL. NO SIGNS OR SYMPTOMS OF DISTRESS NOTED AT THIS TIME. NO COMPLAINS OF PAIN OR DISCOMFORT AT THIS TIME. IV ACCESS RAC G #20 INFUSING NS @ 100 ML/HR. SAFETY PRECAUTIONS ENFORCED WITH BED LOCKED AND AT LOWEST POSITION. CALL LIGHT WITHIN REACH AT ALL TIMES. WILL CONTINUE TO MONITOR PATIENT.
[2021-06-04 20:00] VITALS: BP 128/73
[2021-06-05] MEDS: MORPHINE SULFATE INJ 2 MG/ML DISP.SYRIN IV PRN ×4 (02:59→22:23)
[2021-06-05 07:02] LABS: BASOPHILS % (AUTO) 0.9 % (0.0-2.0); EOSINOPHILS % (AUTO) 3.8 % (0.0-6.0); HEMATOCRIT 38 % (39-51); HEMOGLOBIN 13.1 g/dL (13.5-17.5); LYMPHOCYTES # (AUTO) 1.2 K/uL (0.8-4.8); LYMPHOCYTES % (AUTO) 27.4 % (20.0-44.0); MEAN CORPUSCULAR HGB CONC 34 g/dl (31.0-36.0); MEAN CORPUSCULAR VOLUME 94 fL (80-96); MONOCYTES # (AUTO) 0.9 K/uL (0.1-1.30); MONOCYTES % (AUTO) 22.4 % (2.0-12.0); NEUTROPHILS # (AUTO) 1.9 K/uL (1.8-8.9); NEUTROPHILS % (AUTO) 45.5 % (43.0-81.0); PLATELET COUNT (AUTO) 301 K/uL (150-450); RED BLOOD CELL COUNT(AUTO) 4.03 MIL/uL (4.5-6.0); WHITE BLOOD COUNT (AUTO) 4.2 K/uL (4.3-11.0)
[2021-06-05 07:07] LABS: CALCIUM, SERUM 8.9 mg/dL (8.5-10.1); CREATININE 0.8 mg/dL (0.6-1.3); POTASSIUM 4.6 mmol/L (3.5-5.1)
--- NOTE | 2021-06-05 07:20 | NUR ---
MS RN CLOSING NOTES PATIENT STILL LAYING AWAKE IN BED. A/O X4. PATIENT WITH REGULAR AND UNLABORED BREATHING ON ROOM AIR TOLERATED WELL. NO SIGNS OR SYMPTOMS OF DISTRESS NOTED AT THIS TIME. NO COMPLAINS OF PAIN OR DISCOMFORT AT THIS TIME. IV ACCESS RAC G #20 INFUSING NS @ 100 ML/HR. SAFETY PRECAUTIONS ENFORCED WITH BED LOCKED AND AT LOWEST POSITION. CALL LIGHT WITHIN REACH AT ALL TIMES. WILL ENDORSE CONTINUITY OF CARE TO DAY SHIFT NURSE.
--- NOTE | 2021-06-05 07:44 | NUR ---
RN OPENING NOTES Patient seen comfortably lying in bed, no apparent distress noted, respirations even and unlabored, no shortness of breath, denies any pain or discomfort at this time, no grimacing. Call light left within reach, safety precautions in place, brakes locked, side rails up X 2, will monitor closely for any changes.
[2021-06-05 08:00] VITALS: BP 102/69
[2021-06-05] MEDS: PANTOPRAZOLE 40 MG VIAL IV SCH ×2 (09:06→16:43)
[2021-06-05] MEDS: IV NS 0.9% 1,000 ML IV PRN (09:43)
[2021-06-05] MEDS: ONDANSETRON HCL/PF 4 MG/2 ML VIAL IVP PRN ×2 (09:44→15:45)
[2021-06-05 16:00] VITALS: BP 135/81
--- NOTE | 2021-06-05 17:52 | NUR ---
Per Dr. Norton, get consent for ESOPHAGOGASTRODUODENOSCOPY WITH POSSIBLE BIOPSY, POSSIBLE POLYPECTOMY, CYTOLOGY AND ELECTROCOAGULATION, POSSIBLE SCLEROTHERAPHY, POSSIBLE DILATION, POSSIBLE ESOPHAGEAL VARICEAL BANDING, EGD WITH BARNEY, ESOPHAGOGASTRODUDENOSCOPY WITH ENDOSCOPIC MUCOSAL RESECTION, ENDOSCOPIC ULTRASOUND, EGD WITH HALO PROCEDURE, POSSIBLE BRUSHING, POSSIBLE INJECTION THERAPY, POSSIBLE EUS, POSSIBLE NEED ASPIRATION WITH INTRAVENOUS MODERATE OR MONITORED ANESTHESIA CARE SEDATION AND VIDEO IMAGES from patient. Consent for the procedure, consent for anesthesia, consent for blood transfusion obtained from patient, verbalized understanding of the procedure, reminded patient that he cannot have any food or water after midnight of 06/05/21, verbalized understanding and gratitude. Consents signed by patient and procedural checklist and are filed in patients chart. Patient not wearing any jewelry at this time.
--- NOTE | 2021-06-05 18:00 | NUR ---
RN CLOSING NOTES Patient lying in bed, no SOB, respirations even and unlabored, no apparent distress noted, no dizziness, no palpitations, no chest pain, no vomiting, no s/s of bleeding, no blood in stool, no hematuria, no bleeding gums, no unusual bruising. All due medications given per MD order, tolerating well. Patient has an order for IV fluids (0.9NS at 100ml/hr) IV site on his right antecubital, intact and IV fluids infusing well, no swelling, no redness, no c/o pain or discomfort at site. All needs attended, kept clean and dry, call light left within reach, safety precautions in place, frequent visual check rendered, brakes locked, side rails up X 2, will endorse to next shift for continuity of care.
[2021-06-05] MEDS ORDERED: SUCCINYLCHOLINE CHLORIDE 20 MG/ML VIAL ONE (18:44)
[2021-06-05] MEDS ORDERED: FAMOTIDINE/PF INJ 20 MG/2 ML VIAL IV ONE (18:45)
[2021-06-05] MEDS ORDERED: ANESTHESIA TRAY IN PYXIS 1 EA TRAY MC ONE (18:47)
[2021-06-05 20:30] VITALS: BP 125/81
--- NOTE | 2021-06-05 20:31 | NUR ---
Patient back from EGD awake and in stable condition. VSS. only c/o throat pain because patient was intubated during procedure. Dr. Norton with new orders to continue with medications and Regular Diet.
--- NOTE | 2021-06-05 21:42 | NUR ---
Able to get verbal consent via telephone for blood transfusion. With another RN witness. Addendum: 06/06/21 at 0414 by JOLYNN PRESLEY RN WRONG PATIENT!!!!!!!!!!!!!!!!!!!!!
[2021-06-06 03:41] VITALS: BP 161/92
--- NOTE | 2021-06-06 04:14 | NUR ---
last note was on wrong patient!
[2021-06-06] MEDS: MORPHINE SULFATE INJ 2 MG/ML DISP.SYRIN IV PRN ×2 (04:40→11:30)
[2021-06-06] MEDS: IV NS 0.9% 1,000 ML IV PRN (04:40)
[2021-06-06] MEDS: ONDANSETRON HCL/PF 4 MG/2 ML VIAL IVP PRN (04:47)
--- NOTE | 2021-06-06 05:44 | NUR ---
[id number] Vital signs are error on wrong patient cannot delete
--- NOTE | 2021-06-06 07:00 | NUR ---
MS RN OPENING NOTES RECEIVED PATIENT IN BED, A/O X 4, TOLERATING WELL ON ROOM AIR WITH NO S/S OF RESPIRATORY DISTRESS. NO COMPLAINT OF PAIN AT THIS TIME. R AC 20 G IV INFUSING NS @ 100 ML/HR. SAFETY MEASURES IN PLACE: BED IN LOWEST LOCKED POSITION, SIDE RAILS UP X 2, CALL LIGHT WITHIN REACH. WILL CONTINUE TO MONITOR.
--- NOTE | 2021-06-06 07:07 | NUR ---
Patient awake, A&Ox4, stable overnight. Only c/o nausea and abdominal as well as throat pain relieved by PRNs. Otherwise pt. is happy to eat again. Ambulatory and steady. Currently infusing NS at 100cc/hr to RAC #20G.
[2021-06-06 08:16] VITALS: BP 132/72
[2021-06-06] MEDS: PANTOPRAZOLE 40 MG VIAL IV SCH ×2 (09:42→17:56)
[2021-06-06 09:52] LABS: EOSINOPHILS % (MANUAL) 5 % (0-4); LYMPHOCYTES % (MANUAL) 37 % (16-48); MONOCYTES % (MANUAL) 18 % (0-11.0); NEUTROPHILS % (MANUAL) 40 (42-76)
--- NOTE | 2021-06-06 11:34 | NUR ---
MS RN NOTES PATIENT COMPLAINT OF 10/10 ABDOMINAL PAIN AND REQUESTING MEDICATION. PRN 2 MG MORPHINE IV PRN ADMINISTERED ORDERED. WILL CONTINUE TO MONITOR S/S OF PAIN.
[2021-06-06 16:27] VITALS: BP 124/72
--- NOTE | 2021-06-06 18:00 | NUR ---
MS DOMESTIC TRAVEL CONSULTANT NOTES PATIENT MADE AWARE OF MD DISCHARGE ORDER AND INSTRUCTIONS, PATIENT SIGNED MD DISCHARGE INSTRUCTIONS. ALL MEDICATIONS EXPLAINED TO PATIENT INCLUDING NAMES, ROUTES, DOSAGES, FREQUENCIES, INDICATIONS AND SIDE EFFECTS. PATIENT INSTRUCTED TO FOLLOW UP WITH PRIMARY MD IN 1 WEEK AND FOLLOW UP WITH GI MD NEEDED. LOCATION OF PHARMACY WHERE PATIENT WILL GREENSKEEPER MEDICATIONS EXPLAINED, AND ALL MEDICATION ORDERS FAXED TO PHARMACY. PATIENT VERBALIZED POSSESSION OF ALL BELONGINGS AND BELONGINGS LIST SIGNED. ID BAND AND IV LINE REMOVED. COPY OF SIGNED PATIENT DISCHARGE INSTRUCTIONS SHEET CREATED AND PLACED INTO PATIENT CHART. DISCHARGE PACKET INCLUDING EDUCATIONAL MATERIAL PROVIDED TO PATIENT. PATIENT VERBALIZED UNDERSTANDING OF ALL INSTRUCTIONS AND TRANSPORTED OFF OF FLOOR BY ANA [facility] VIA WHEELCHAIR.
== END 2021-06-06 18:53 | disposition home or self-care (01) | DRG 241 ==
LOC: TELE 16:58 → MED 17:17
PROVIDERS: ADMIT Family Medicine; ATTEND Family Medicine
PROC: 0DJ08ZZ Inspection of Upper Intestinal Tract, Via Natural or Artificial Opening Endoscopic (ICD-10-PCS; principal; 2021-06-05)
DX: K29.71 Gastritis, unspecified, with bleeding (principal); D62 Acute posthemorrhagic anemia; I25.10 Atherosclerotic heart disease of native coronary artery without angina pectoris; E78.5 Hyperlipidemia, unspecified; F41.9 Anxiety disorder, unspecified; I10 Essential (primary) hypertension; Z79.82 Long term (current) use of aspirin; Z91.14 Patient's other noncompliance with medication regimen
CPT/HCPCS: 36415; 80048-TC; 80061-TC; 83735-TC; 84100-TC; 85025-TC; 87081-TC; C9113; G0378; J0330; J2270; J2405; J2704; J2765; J3490; J7030

== ENCOUNTER 2021-06-23 23:07 | Emergency (ER) | payer MEDICAID ==
[~2021-06-23] VITALS: Ht 167.6 cm; Wt 72.6 kg
--- NOTE | 2021-06-24 01:27 | NUR ---
BIBSELF C/O VOMITING BLOOD WITH BLOODY STOOL FOR THE PAST 4 DAYS
[2021-06-24] MEDS ORDERED: ONDANSETRON HCL/PF 4 MG/2 ML VIAL ONE (01:43)
[2021-06-24] MEDS ORDERED: PANTOPRAZOLE 40 MG VIAL ONE (01:43)
[2021-06-24] MEDS ORDERED: MAG HYDROX/AL HYDROX/SIMETH 30 ML UDC ONE (01:43)
[2021-06-24] MEDS ORDERED: ONDANSETRON HCL/PF 4 MG/2 ML VIAL IVP ONE (02:00)
[2021-06-24] MEDS ORDERED: MAG HYDROX/AL HYDROX/SIMETH 30 ML UDC PO ONE (02:00)
[2021-06-24] MEDS ORDERED: PANTOPRAZOLE 40 MG VIAL IV ONE (02:00)
[2021-06-24 02:03] LABS: BASOPHILS % (AUTO) 0.5 % (0.0-2.0); EOSINOPHILS % (AUTO) 0.4 % (0.0-6.0); HEMATOCRIT 40 % (39-51); LYMPHOCYTES # (AUTO) 1.2 K/uL (0.8-4.8); LYMPHOCYTES % (AUTO) 21.7 % (20.0-44.0); MEAN CORPUSCULAR HGB CONC 35 g/dl (31.0-36.0); MEAN CORPUSCULAR VOLUME 93 fL (80-96); MONOCYTES # (AUTO) 0.8 K/uL (0.1-1.30); MONOCYTES % (AUTO) 14.8 % (2.0-12.0); NEUTROPHILS # (AUTO) 3.4 K/uL (1.8-8.9); NEUTROPHILS % (AUTO) 62.6 % (43.0-81.0); PLATELET COUNT (AUTO) 338 K/uL (150-450); RED BLOOD CELL COUNT(AUTO) 4.33 MIL/uL (4.5-6.0); WHITE BLOOD COUNT (AUTO) 5.5 K/uL (4.3-11.0)
[2021-06-24 02:17] LABS: ALBUMIN 4.4 g/dL (3.4-5.0); BILIRUBIN,DIRECT 0.1 mg/dL (0.0-0.2); BILIRUBIN,TOTAL 0.4 mg/dL (0.2-1.0); CALCIUM, SERUM 8.8 mg/dL (8.5-10.1); CREATININE 0.5 mg/dL (0.6-1.3); POTASSIUM 3.6 mmol/L (3.5-5.1); TOTAL PROTEIN, SERUM 8.6 g/dL (6.4-8.2)
[2021-06-24] MEDS ORDERED: MORPHINE SULFATE INJ 4 MG/ML DISP.SYRIN ONE (04:19)
[2021-06-24] MEDS ORDERED: MORPHINE SULFATE INJ 2 MG/ML DISP.SYRIN IV ONE (04:30)
[2021-06-24] MEDS ORDERED: ONDA4TAB5 PO (05:41)
[2021-06-24] MEDS ORDERED: MAG355OR18 PO (05:41)
[2021-06-24] MEDS ORDERED: KETOROLAC TROMETHAMINE 15 MG/ML VIAL ONE (05:56)
[2021-06-24] MEDS ORDERED: KETOROLAC TROMETHAMINE INJ 30 MG/ML VIAL IV ONE (06:00)
--- NOTE | 2021-06-24 06:07 | NUR ---
Patient discharged to home in stable condition. Written and verbal after care instructions given. Patient verbalizes understanding of instruction. IV removed. Catheter intact and site benign. Pressure and 4x4 applied to site. No bleeding noted.
[2021-06-24 06:26] VITALS: BP 166/80
== END 2021-06-24 06:27 | disposition home or self-care (01) ==
LOC: ER 23:07
DX: R10.9 Unspecified abdominal pain (principal); I10 Essential (primary) hypertension; Z86.79 Personal history of other diseases of the circulatory system; Z60.2 Problems related to living alone; Z79.82 Long term (current) use of aspirin; Z79.899 Other long term (current) drug therapy
CPT/HCPCS: 36415; 71045; 80048; 80076; 83690; 85025; 93005; 96374; 96375; 99285; C9113; J1885; J2270; J2405

== ENCOUNTER 2022-08-04 02:34 | Inpatient (IN) | payer MEDICAID ==
[~2022-08-04] VITALS: Ht 167.6 cm; Wt 72.6 kg
[~2022-08-04 02:34] MED LIST changes: +MAG355OR18 PO
--- NOTE | 2022-08-04 03:00 | NUR ---
CALLED FOR TRIAGE. NO ANSWER
--- NOTE | 2022-08-04 03:59 | NUR ---
BLOOD WORK COVID SWAB COLLECTED
--- NOTE | 2022-08-04 04:04 | NUR ---
PT BIBSELF C/O BLOOD IN STOOL STARTED LAST NIGHT. PT STATED MILD ABD PAIN. PT IS A/O X 4, RR EVEN AND UNLABORED. PT IS AFEBRILE. PT WALKS WITH STEADY GAIT. PT VSS. NAD. ER MD AT BEDSIDE FOR EVAL
[2022-08-04] MEDS ORDERED: ACETAMINOPHEN ES 500 MG TABLET ONE (04:16)
[2022-08-04] MEDS ORDERED: CT SWABBABLE VALVE TRANS SET 1 EA INFUS.SET MC ONE ×2 (04:22→07:06)
[2022-08-04] MEDS ORDERED: IOHEXOL-300 100 ML VIAL IV ONE (04:22)
[2022-08-04] MEDS ORDERED: IV NS 0.9% 250 ML IV ONE ×2 (04:24→07:06)
[2022-08-04] MEDS ORDERED: ACETAMINOPHEN ES 500 MG TABLET PO ONE (04:30)
[2022-08-04] MEDS ORDERED: IV NS 0.9% 1,000 ML BAG IV ONE (04:30)
[2022-08-04 04:38] LABS: BASOPHILS % (AUTO) 0.8 % (0.0-2.0); EOSINOPHILS % (AUTO) 1.2 % (0.0-6.0); HEMATOCRIT 43 % (39-51); HEMOGLOBIN 14.5 g/dL (13.5-17.5); LYMPHOCYTES # (AUTO) 1.4 K/uL (0.8-4.8); LYMPHOCYTES % (AUTO) 25.8 % (20.0-44.0); MEAN CORPUSCULAR HGB CONC 34 g/dl (31.0-36.0); MEAN CORPUSCULAR VOLUME 93 fL (80-96); MONOCYTES # (AUTO) 0.8 K/uL (0.1-1.30); NEUTROPHILS # (AUTO) 3.1 K/uL (1.8-8.9); NEUTROPHILS % (AUTO) 57.2 % (43.0-81.0); PLATELET COUNT (AUTO) 266 K/uL (150-450); RED BLOOD CELL COUNT(AUTO) 4.59 MIL/uL (4.5-6.0); WHITE BLOOD COUNT (AUTO) 5.4 K/uL (4.3-11.0)
[2022-08-04 04:44] LABS: CALCIUM, SERUM 9.2 mg/dL (8.5-10.1); CARBON DIOXIDE 25 mmol/L (21-32); CHLORIDE 99 mmol/L (98-107); CREATININE 0.7 mg/dL (0.6-1.3); GLUCOSE 99 mg/dL (74-106); POTASSIUM 3.6 mmol/L (3.5-5.1); SODIUM SERUM 134 mmol/L (136-145); UREA NITROGEN, BLOOD 13 mg/dL (7-18)
[2022-08-04 04:52] LABS: ALANINE AMINOTRANSFERASE 48 U/L (12-78); ALBUMIN 4.5 g/dL (3.4-5.0); ALKALINE PHOSPHATASE 70 U/L (46-116); ASPARTATE AMINOTRANSFERASE 32 U/L (15-37); BILIRUBIN,DIRECT 0.1 mg/dL (0.0-0.2); BILIRUBIN,TOTAL 0.5 mg/dL (0.2-1.0); LIPASE 128 U/L (73-393); TOTAL PROTEIN, SERUM 8.2 g/dL (6.4-8.2)
--- NOTE | 2022-08-04 06:11 | NUR ---
EPIC PAGED, AWAITING CALLBACK
[2022-08-04] MEDS ORDERED: Z GUARD REMEDY 4 OZ OINT TP PRN (07:00)
[2022-08-04] MEDS ORDERED: ONDANSETRON HCL/PF 4 MG/2 ML VIAL IVP PRN (07:00)
[2022-08-04] MEDS ORDERED: MAGNESIUM HYDROXIDE 30 ML UDC PO PRN (07:00)
[2022-08-04] MEDS ORDERED: IOHEXOL-350 100 ML VIAL IV ONE (07:06)
--- NOTE | 2022-08-04 07:07 | NUR ---
REPORT GIVEN TO ANDREW GONZALEZ FOR LOGAN
--- NOTE | 2022-08-04 08:36 | NUR ---
ROOM [id number]
--- NOTE | 2022-08-04 08:50 | NUR ---
Report given to LISA Marr
--- NOTE | 2022-08-04 09:07 | NUR ---
PATIENT TRANSFERRED TO [facility] WITHOUT INCIDENT. ALL CARE ENDORSED TO LISA SANABRIA
[2022-08-04 09:30] VITALS: BP 144/84
[2022-08-04] MEDS: PANTOPRAZOLE 40 MG VIAL IV SCH ×2 (11:15→18:09)
[2022-08-04] MEDS ORDERED: PANT40TA2 PO (11:44)
[2022-08-04] MEDS ORDERED: ONDA4TAB5 PO (11:44)
[2022-08-04] MEDS ORDERED: ACET-2605 PO (11:44)
[2022-08-04] MEDS ORDERED: SERT50TA PO (11:44)
[2022-08-04 12:00] VITALS: BP 169/108
[2022-08-04] MEDS ORDERED: MORPHINE SULFATE INJ 2 MG/ML DISP.SYRIN IV PRN (14:00)
[2022-08-04 16:00] VITALS: BP 112/71
--- NOTE | 2022-08-04 18:10 | NUR ---
END OF SHIFT SUMMARY ADMITTED PATIENT FROM ED. RECEIVED REPORT FROM ANDREW. PATIENT WAS BROUGHT UP VIA GURNEY AT 0900. PATIENT IS A/O X4, BANGLADESHI SPEAKING. AMBULATORY WITH ASSIST. SR ON TELE. CONTINENT, USES URINAL. SWALLOW EVAL DONE, PASSED. IV ACCESS ON L AC #18, INTACT AND PATENT. PATIENT IS TOLERATING DIET WELL. NO BM TODAY. SAFETY MEASURES MAINTAINED. BED IN LOWEST POSITION, BRAKES LOCKED. SIDE RAILS UP X2. CALL LIGHT WITHIN REACH. WILL ENDORSE CONTINUITY OF CARE TO ONCOMING SHIFT.
[2022-08-04] MEDS: MORPHINE SULFATE INJ 2 MG/ML DISP.SYRIN IV PRN ×2 (18:21→19:46)
--- NOTE | 2022-08-04 19:20 | NUR ---
RAD TECHNOLOGIST OPENING NOTES - RECEIVED PATIENT RESTING IN BED. A/O X4, SPEAKS HUNGARIAN AND ENGLISH. BREATHING EVEN AND NON-LABORED ON ROOM AIR. IN MILD DISTRESS D/T CRAMP-LIKE RLQ ABDOMINAL PAIN 12/29. ON TELE MONITOR READING SINUS RHYTHM AT 79 BPM. HAS LEFT ANTECUBITAL IV ACCESS #18G AND SALINE LOCKED. NO S/S OF INFILTRATION NOTED. RIGHT UPPER AND LOWER EXTREMITY WEAKNESS STARTED 4 DAYS AGO PER PATIENT. NO ACTIVE BLEEDING. INSTRUCTED THAT WE WILL NEED A STOOL SAMPLE, VERBALIZED UNDERSTANDING. SAFETY PRECAUTIONS IN PLACE: BED LOCKED AND IN LOW POSITION, SIDE RAILS UP X2, CALL LIGHT WITHIN REACH. WILL CONTINUE PLAN OF CARE.
--- NOTE | 2022-08-04 19:54 | NUR ---
ADMINISTERED PRN MORPHINE SULFATE 2MG FOR RLQ ABDOMINAL PAIN 12/29. WILL CONTINUE TO MONITOR. Addendum: 08/05/22 at 0055 by August PRISCILLA GONZALEZ PRN MORPHINE AT 0053 FOR THE SAME PAIN
[2022-08-04 19:59] VITALS: BP 134/73
[2022-08-04 20:10] VITALS: BP 134/73
--- NOTE | 2022-08-04 20:21 | NUR ---
PER HOSPITALIST ROSA, THIS IS NOT HIS PATIENT AND INFORM AM HOSPITALIST TO DO MED RECON.
[2022-08-04] MEDS: ATORVASTATIN 40 MG TABLET PO SCH (21:51)
[2022-08-05] VITALS (7 sets, daily range): BP systolic 110–146; BP diastolic 69–85
[2022-08-05] MEDS: MORPHINE SULFATE INJ 2 MG/ML DISP.SYRIN IV PRN ×6 (00:53→23:37)
[2022-08-05 05:44] LABS: BASOPHILS % (AUTO) 0.6 % (0.0-2.0); EOSINOPHILS % (AUTO) 2.8 % (0.0-6.0); HEMATOCRIT 40 % (39-51); HEMOGLOBIN 13.7 g/dL (13.5-17.5); LYMPHOCYTES # (AUTO) 1.3 K/uL (0.8-4.8); LYMPHOCYTES % (AUTO) 31.6 % (20.0-44.0); MEAN CORPUSCULAR HGB CONC 34 g/dl (31.0-36.0); MEAN CORPUSCULAR VOLUME 95 fL (80-96); MONOCYTES # (AUTO) 0.7 K/uL (0.1-1.30); MONOCYTES % (AUTO) 16.3 % (2.0-12.0); NEUTROPHILS # (AUTO) 2.1 K/uL (1.8-8.9); NEUTROPHILS % (AUTO) 48.7 % (43.0-81.0); PLATELET COUNT (AUTO) 256 K/uL (150-450); RED BLOOD CELL COUNT(AUTO) 4.25 MIL/uL (4.5-6.0); WHITE BLOOD COUNT (AUTO) 4.2 K/uL (4.3-11.0)
[2022-08-05 06:37] LABS: CALCIUM, SERUM 8.9 mg/dL (8.5-10.1); CREATININE 0.8 mg/dL (0.6-1.3); MAGNESIUM 2.2 mg/dL (1.8-2.4); PHOSPHORUS 4.5 mg/dL (2.5-4.9); POTASSIUM 3.8 mmol/L (3.5-5.1)
[2022-08-05] MEDS: PANTOPRAZOLE 40 MG VIAL IV SCH ×2 (06:58→19:23)
--- NOTE | 2022-08-05 07:21 | NUR ---
ENGRAVING SUPERVISOR CLOSING NOTES - PATIENT RESTING IN BED, ABLE TO VERBALIZE NEEDS. NO CARDIAC OR RESPIRATORY DISTRESS THROUGHOUT THE NIGHT. STILL C/O RLQ ABDOMINAL PAIN 10/10, ADMINISTERED PRN MORPHINE 2MG PER MD ORDER. AFEBRILE. ON TELE MONITOR READING SINUS RHYTHM AT 66 BPM. LEFT ANTECUBITAL IV ACCESS INTACT, PATENT AND FLUSHING. NIHHS SCORE 3, MD AWARE. NO BM, CLEAR DARK YELLOW URINE NOTED. ALL DUE MEDS GIVEN AND NEEDS ATTENDED. MINIMAL ASSISTANCE ON ADLS. SAFETY PRECAUTIONS MAINTAINED. WILL ENDORSE TO NEXT SHIFT FOR LOGAN.
--- NOTE | 2022-08-05 07:30 | NUR ---
SENIOR TEST ANALYST NOTES PT IN BED, ASLEEP, EASY TO AROUSE, NO SIGN OF PAIN OR DISTRESS, CALL LIGHT WITHIN REACH.
--- NOTE | 2022-08-05 10:51 | NUR ---
LEAD DRIVER NOTES PT SEEN AND EXAMINED BY DR. BOLDEN, PLAN OF CARE DISCUSSED WITH PT, VERBALIZED UNDERSTANDING.
--- NOTE | 2022-08-05 19:00 | NUR ---
HEAD DOFFER NOTES PT AWAKE, ALERT AND ORIENTED, SITTING IN BED, NO COMPLAINT AT THIS TIME, RESPIRATIONS NORMAL, CALL LIGHT WITHIN REACH, ALL NEEDS ATTENDED.
--- NOTE | 2022-08-05 19:30 | NUR ---
TARGET SETTER OPENING NOTES - RECEIVED PATIENT AWAKE IN BED. A/O X4. BREATHING EVEN AND NON-LABORED ON ROOM AIR. NOT IN APPARENT DISTRESS. JUST RECEIVED HIS PRN MORPHINE 2MG FOR RLQ ABDOMINAL PAIN. ON TELE MONITOR READING SINUS TACHYCARDIA AT 109 BPM. HAS LEFT ANTECUBITAL IV ACCESS #18G AND SALINE LOCKED. NO S/S OF INFILTRATION NOTED. STOOL SMEAR NOT ENOUGH FOR SOBT. ENCOURAGED TO CALL FOR ASSISTANCE WHEN GOING TO THE BATHROOM. SAFETY PRECAUTIONS IN PLACE: BED LOCKED AND IN LOW POSITION, SIDE RAILS UP X2, CALL LIGHT WITHIN REACH. WILL CONTINUE PLAN OF CARE.
[2022-08-05] MEDS: ATORVASTATIN 40 MG TABLET PO SCH (21:24)
--- NOTE | 2022-08-05 23:38 | NUR ---
C/O DEWAYNE ELIZONDOQ ABDOMINAL PAIN 12/29. ADMINISTERED PRN MORPHINE SULFATE 2MG PER MD ORDER. Addendum: 08/06/22 at 0353 by August PRISCILLA GONZALEZ SLEPT FOR AN HOUR AND WOKE UP WITH THE SAME PAIN, PRN MORPHINE GIVEN.
[2022-08-06] VITALS: BP 113/70
[2022-08-06 01:25] LABS: BASOPHILS % (MANUAL) 0 % (0.0-2.0); EOSINOPHILS % (MANUAL) 4 % (0-4); LYMPHOCYTES % (MANUAL) 29 % (16-48); MONOCYTES % (MANUAL) 14 % (0-11.0); NEUTROPHILS % (MANUAL) 53 (42-76)
[2022-08-06] MEDS: MORPHINE SULFATE INJ 2 MG/ML DISP.SYRIN IV PRN ×3 (03:50→12:53)
[2022-08-06 04:00] VITALS: BP 126/77
[2022-08-06 06:25] LABS: BASOPHILS % (AUTO) 0.5 % (0.0-2.0); EOSINOPHILS % (AUTO) 2.6 % (0.0-6.0); HEMATOCRIT 40 % (39-51); HEMOGLOBIN 13.3 g/dL (13.5-17.5); LYMPHOCYTES # (AUTO) 1.2 K/uL (0.8-4.8); LYMPHOCYTES % (AUTO) 27.2 % (20.0-44.0); MEAN CORPUSCULAR HGB CONC 33 g/dl (31.0-36.0); MEAN CORPUSCULAR VOLUME 95 fL (80-96); MONOCYTES # (AUTO) 0.8 K/uL (0.1-1.30); MONOCYTES % (AUTO) 17.3 % (2.0-12.0); NEUTROPHILS # (AUTO) 2.4 K/uL (1.8-8.9); NEUTROPHILS % (AUTO) 52.4 % (43.0-81.0); PLATELET COUNT (AUTO) 249 K/uL (150-450); RED BLOOD CELL COUNT(AUTO) 4.19 MIL/uL (4.5-6.0); WHITE BLOOD COUNT (AUTO) 4.5 K/uL (4.3-11.0)
[2022-08-06] MEDS: PANTOPRAZOLE 40 MG VIAL IV SCH (06:39)
--- NOTE | 2022-08-06 06:46 | NUR ---
PUBLIC RELATIONS SENIOR ASSOCIATE CLOSING NOTES - PATIENT RESTING, ABLE TO VERBALIZE NEEDS. NO SOB OR NOTED. AFEBRILE. NO ACUTE DISTRESS. SATURATING AT 96% IN ROOM AIR. C/O MILD RLQ ABDOMINAL PAIN. ON TELE MONITOR READING SINUS RHYTHM AT 66 BPM. LEFT ANTECUBITAL IV ACCESS FLUSHING WELL. ALL DUE MEDS GIVEN AND NEEDS ATTENDED. SAFETY PRECAUTIONS MAINTAINED. WILL ENDORSE TO NEXT SHIFT FOR LOGAN.
[2022-08-06 07:00] VITALS: BP 150/101
[2022-08-06 07:02] LABS: CREATININE 0.8 mg/dL (0.6-1.3); MAGNESIUM 2.2 mg/dL (1.8-2.4); PHOSPHORUS 4.4 mg/dL (2.5-4.9); POTASSIUM 3.8 mmol/L (3.5-5.1)
--- NOTE | 2022-08-06 07:05 | NUR ---
CHOCOLATE DIPPER OPENING NOTE: RECEIVED PT IN BED. AOX4. PALESTINIAN SPEAKING. ABLE TO MAKE NEEDS KNOWN. DENIES PAIN OR DISCOMFORT. NO RESP DISTRESS NOTED. SKIN WARM AND DRY TO TOUCH. HOB KEPT ELEVATED. BED KEPT LOW AND LOCK POSITION FOR SAFETY. CALL LIGHT WITHIN REACH.
[2022-08-06 11:11] LABS: OCCULT BLOOD STOOL NEGATIVE (NEGATIVE)
[2022-08-06 12:00] VITALS: BP 133/77
[2022-08-06 13:38] LABS: BAND % (MANUAL) 5 % (0.0-5.0); LYMPHOCYTES % (MANUAL) 25 % (16-48); NEUTROPHILS % (MANUAL) 53 (42-76)
[2022-08-06 13:39] LABS: BASOPHILS % (MANUAL) 0 % (0.0-2.0); EOSINOPHILS % (MANUAL) 2 % (0-4); MONOCYTES % (MANUAL) 15 % (0-11.0)
[2022-08-06 16:00] VITALS: BP 127/81
[2022-08-06] MEDS: PANTOPRAZOLE 40 MG TABLET.DR PO SCH (16:34)
[2022-08-06] MEDS: METOPROLOL TARTRATE 50 MG TABLET PO SCH (16:34)
[2022-08-06] MEDS: DOCUSATE SODIUM 100 MG CAPSULE PO SCH (16:34)
[2022-08-06] MEDS: HYDROCODONE/APAP 10/325MG TABLET PO PRN (18:12)
--- NOTE | 2022-08-06 18:20 | NUR ---
INDUSTRIAL ROOFER CLOSING NOTE: PATIENT IN BED. ABLE TO VERBALIZE NEEDS. NO SOB OR NOTED. AFEBRILE. NO ACUTE DISTRESS. ON TELE MONITOR READING SINUS RHYTHM AT 70. LEFT ANTECUBITAL IV ACCESS FLUSHING WELL. ALL DUE MEDS GIVEN AND NEEDS ATTENDED. SAFETY PRECAUTION. BED KEPT LOW AND LOCK POSTION.
--- NOTE | 2022-08-06 19:52 | NUR ---
PRINT CUTTER OPENING NOTE: RECEIVED PT IN BED. AOX4. NICARAGUAN SPEAKING. ABLE TO MAKE NEEDS KNOWN. DENIES PAIN OR DISCOMFORT. NO RESP DISTRESS NOTED. SKIN WARM AND DRY TO TOUCH. HOB KEPT ELEVATED. BED KEPT LOW AND LOCK POSITION FOR SAFETY. CALL LIGHT WITHIN REACH.
[2022-08-06 20:28] VITALS: BP 156/89
[2022-08-06] MEDS: ATORVASTATIN 40 MG TABLET PO SCH (21:11)
[2022-08-07 00:18] VITALS: BP 159/99
[2022-08-07] MEDS: HYDROCODONE/APAP 10/325MG TABLET PO PRN ×2 (00:20→10:57)
[2022-08-07 04:30] VITALS: BP 132/79
[2022-08-07 06:01] LABS: BASOPHILS % (AUTO) 0.6 % (0.0-2.0); EOSINOPHILS % (AUTO) 2.9 % (0.0-6.0); HEMATOCRIT 44 % (39-51); HEMOGLOBIN 14.7 g/dL (13.5-17.5); LYMPHOCYTES # (AUTO) 1.8 K/uL (0.8-4.8); LYMPHOCYTES % (AUTO) 34.3 % (20.0-44.0); MEAN CORPUSCULAR HGB CONC 33 g/dl (31.0-36.0); MEAN CORPUSCULAR VOLUME 94 fL (80-96); MONOCYTES # (AUTO) 0.8 K/uL (0.1-1.30); MONOCYTES % (AUTO) 14.9 % (2.0-12.0); NEUTROPHILS # (AUTO) 2.5 K/uL (1.8-8.9); NEUTROPHILS % (AUTO) 47.3 % (43.0-81.0); PLATELET COUNT (AUTO) 277 K/uL (150-450); RED BLOOD CELL COUNT(AUTO) 4.67 MIL/uL (4.5-6.0); WHITE BLOOD COUNT (AUTO) 5.3 K/uL (4.3-11.0)
[2022-08-07 06:28] LABS: CALCIUM, SERUM 9.7 mg/dL (8.5-10.1); CREATININE 0.8 mg/dL (0.6-1.3); MAGNESIUM 2.3 mg/dL (1.8-2.4); PHOSPHORUS 4.7 mg/dL (2.5-4.9); POTASSIUM 3.9 mmol/L (3.5-5.1)
--- NOTE | 2022-08-07 07:20 | NUR ---
LENS EDGER OPENING NOTES RECEIVED PATIENT IN BED, ASLEEP BUT EASY TO AROUSE. A/O X4, BELARUSIAN SPEAKING BUT CAN UNDERSTAND TAMAZIGHT. ABLE TO MAKE NEEDS KNOWN. NO SIGNS OF ACUTE DISTRESS NOTED. ON ROOM AIR TOLERATING WELL. NO SOB NOTED, BREATHING EVEN AND UNLABORED. ON TELE MONITOR READING SR; HR-72BPM. NOTED WITH IV ACCESS ON LAC #18-SL. INTACT, PATENT AND FLUSHING WELL. PATIENT DENIES ANY PAIN AT THIS TIME. SAFETY MEASURES PUT IN PLACE. BED IN LOW AND LOCKED POSITION; SIDE RAILS UP X2; CALL LIGHT AND TABLE WITHIN EASY REACH. WILL CONTINUE WITH PLAN OF CARE.
[2022-08-07] MEDS: SERTRALINE HCL 50 MG TABLET PO SCH (09:41)
[2022-08-07] MEDS: METOPROLOL TARTRATE 50 MG TABLET PO SCH ×2 (09:41→17:48)
[2022-08-07] MEDS: PANTOPRAZOLE 40 MG TABLET.DR PO SCH ×2 (09:41→17:23)
[2022-08-07] MEDS: DOCUSATE SODIUM 100 MG CAPSULE PO SCH ×2 (09:42→17:23)
[2022-08-07 09:45] VITALS: BP 130/83
[2022-08-07 13:36] VITALS: BP 168/96
[2022-08-07] MEDS: ACETAMINOPHEN 325 MG TABLET PO PRN (17:50)
--- NOTE | 2022-08-07 19:30 | NUR ---
MS RN NOTES RECEIVED LYING ON BED,A/O X4,SPEAK KHMER, AT BEDSIDE,SALINE LOCK LEFT AC INTACT AND PATENT.ABLE TO AMBULATE WITH FWW.WILL CONTINUE TO MONITOR STATUS.CALL LIGHT IN REACH,NEEDS ANTICIPATED.
--- NOTE | 2022-08-07 19:30 | NUR ---
MATERIAL HANDLING WAREHOUSE SUPERVISOR CLOSING NOTES PATIENT IN BED, AWAKE AND WATCHING TV. A/O X4, PALAUAN SPEAKING BUT CAN UNDERSTAND SCOTTISH. ABLE TO MAKE NEEDS KNOWN. NO SIGNS OF ACUTE DISTRESS NOTED AT THIS TIME. ON ROOM AIR TOLERATED WELL. NO SOB NOTED, BREATHING EVEN AND UNLABORED. ON TELE MONITOR READING SR; HR-76 BPM. NOTED WITH IV ACCESS ON LAC #18-SL. INTACT, PATENT AND FLUSHING WELL. PATIENT DENIES ANY PAIN AT THIS TIME. ALL DUE MEDS GIVEN. ALL NURSING NEEDS ATTENDED. SAFETY MEASURES PUT IN PLACED. BED IN LOW AND LOCKED POSITION; SIDE RAILS UP X2; CALL LIGHT AND TABLE WITHIN EASY REACH. WILL ENDORSE TO CASE FINISHER NURSE FOR CONTINUITY OF CARE.
[2022-08-07 20:00] VITALS: BP 112/75
[2022-08-07] MEDS: ATORVASTATIN 40 MG TABLET PO SCH (21:48)
[2022-08-08] MEDS: ACETAMINOPHEN 325 MG TABLET PO PRN ×3 (00:22→15:21)
--- NOTE | 2022-08-08 00:22 | NUR ---
RETAIL PROJECT MERCHANDISER NOTES C/O GENERALIZED MILD BODY PAIN,TYLENOL 650MG PO GIVEN FOR MILD PAIN AND PER PATIENT REQUEST.
[2022-08-08 03:32] VITALS: BP 133/81
[2022-08-08 04:00] VITALS: BP 133/82
--- NOTE | 2022-08-08 06:17 | NUR ---
DOT NET DEVELOPER NOTES SR-63 ON TELE MONITOR,TYLENOL EFFECTIVE FOR MILD BACK PAIN,AWAITING MRI OF SPINE WITHOUT CONTRAST.FAIRLY RESTED,IN NO ACUTE DISTRESS.
[2022-08-08 06:24] LABS: CALCIUM, SERUM 9.1 mg/dL (8.5-10.1); CREATININE 0.8 mg/dL (0.6-1.3); POTASSIUM 3.9 mmol/L (3.5-5.1)
[2022-08-08 06:26] LABS: BASOPHILS % (AUTO) 0.5 % (0.0-2.0); EOSINOPHILS % (AUTO) 2.4 % (0.0-6.0); HEMATOCRIT 41 % (39-51); HEMOGLOBIN 13.7 g/dL (13.5-17.5); LYMPHOCYTES # (AUTO) 1.1 K/uL (0.8-4.8); LYMPHOCYTES % (AUTO) 18.9 % (20.0-44.0); MEAN CORPUSCULAR HGB CONC 33 g/dl (31.0-36.0); MEAN CORPUSCULAR VOLUME 94 fL (80-96); MONOCYTES % (AUTO) 16.5 % (2.0-12.0); NEUTROPHILS # (AUTO) 3.7 K/uL (1.8-8.9); NEUTROPHILS % (AUTO) 61.7 % (43.0-81.0); PLATELET COUNT (AUTO) 252 K/uL (150-450); RED BLOOD CELL COUNT(AUTO) 4.36 MIL/uL (4.5-6.0); WHITE BLOOD COUNT (AUTO) 5.9 K/uL (4.3-11.0)
[2022-08-08 06:49] LABS: PHOSPHORUS 4.1 mg/dL (2.5-4.9)
[2022-08-08 08:00] VITALS: BP 160/84
--- NOTE | 2022-08-08 08:09 | NUR ---
RN OPENING NOTE RECEIVED PATIENT IN BED, AO X 4, ABLE TO RESPONDS ALL PHYSICAL STIMULI. RESPIRATORY EVEN AND UNLABORED IN ROOM AIR AND OXYGEN NEEDED AT 2Ls, IN NO ACUTE RESPIRATORY DISTRESS OBSERVED. SKIN IS WARM TO TOUCH, KEEP CLEAN/DRY. KEPT ELEVATED HOB FOR ASPIRATION PRECAUTION AND ENSURE AIRWAY, ALSO LOWEST BED POSITIONED. BED ALARM IS ON AT ALL TIMES FOR SAFETY. CALL LIGHT WITHIN REACH, WILL CONTINUE TO MONITOR. Addendum: 08/08/22 at 0818 by ÁNGEL LUKE RN ERROR
--- NOTE | 2022-08-08 08:18 | NUR ---
RN OPENING NOTE RECEIVED PATIENT IN BED, AO X 4, ABLE TO RESPONDS ALL PHYSICAL STIMULI. RESPIRATORY EVEN AND UNLABORED IN ROOM AIR, IN NO ACUTE RESPIRATORY DISTRESS OBSERVED. SKIN IS WARM TO TOUCH, KEEP CLEAN/DRY. KEPT ELEVATED HOB FOR ASPIRATION PRECAUTION AND ENSURE AIRWAY, ALSO LOWEST BED POSITIONED. BED ALARM IS ON AT ALL TIMES FOR SAFETY. CALL LIGHT WITHIN REACH, WILL CONTINUE TO MONITOR.
[2022-08-08] MEDS: PANTOPRAZOLE 40 MG TABLET.DR PO SCH ×2 (09:02→17:26)
[2022-08-08] MEDS: DOCUSATE SODIUM 100 MG CAPSULE PO SCH ×2 (09:02→17:26)
[2022-08-08] MEDS: SERTRALINE HCL 50 MG TABLET PO SCH (09:02)
[2022-08-08] MEDS: METOPROLOL TARTRATE 50 MG TABLET PO SCH ×2 (09:02→17:26)
[2022-08-08 12:00] VITALS: BP 152/92
[2022-08-08 16:00] VITALS: BP 127/68
--- NOTE | 2022-08-08 17:59 | NUR ---
RN CLOSING NOTE PATIENT RESTING IN BED. IN NO ACUTE DISTRESS OBSERVED. RESPIRATORY EVEN AND UNLABORED IN ROM AIR. SKIN IS WARM TO TOUCH KEEP CLEAN/DRY. KEPT ELEVATED HOB FOR ENSURE AIRWAY/ASPIRATION PRECAUTION, AND LOWEST BED POSITION. BED ALARM IS ON ALL TIMES FOR SAFETY. CALL LIGHT WITHIN REACH, WILL ENDORSE ASSISTANT TEACHER PRIMARY.
--- NOTE | 2022-08-08 18:07 | NUR ---
PATIENT HAS BEEN DONE MRI C-SPINE WO CONTRAST, AND DR. MCPHERSON MADE AWARE THE RESULT. NEW ORDER SINEMET 25 -100MG 1 TAB PO TID. NOTED AND CARRY OUT. Addendum: 08/08/22 at 3 by ÁNGEL LUKE RN ERROR
--- NOTE | 2022-08-08 18:13 | NUR ---
PATIENT HAS BEEN DONE MRI C-SPINE WO CONTRAST, AND DR. MCPHERSON MADE AWARE THE RESULT. NEW ORDER SINEMET 25 -100MG 1 TAB PO TID FOR TREMORS. NOTED AND CARRY OUT.
[2022-08-08 20:00] VITALS: BP 104/68
--- NOTE | 2022-08-08 20:00 | NUR ---
RECEIVED PATIENT IN BED, ALERT/ORIENTED X3, [place] SPEAKING ONLY, STABLE ON ROOM AIR, COMPLAINING OF ABDOMINAL DISCOMFORT/PAIN, AMBULATORY WITH SUPERVISION, CONTINENT, USES URINAL AND TOILET, KEPT SAFE, WILL CONTINUE TO MONITOR.
[2022-08-08] MEDS: DICYCLOMINE HCL 10 MG CAPSULE PO PRN ×4 (20:53→21:13)
[2022-08-08] MEDS: ATORVASTATIN 40 MG TABLET PO SCH (21:14)
[2022-08-09] VITALS: BP 147/87
[2022-08-09] MEDS: MORPHINE SULFATE INJ 2 MG/ML DISP.SYRIN IV PRN ×3 (03:56→13:51)
--- NOTE | 2022-08-09 06:56 | NUR ---
ALERT/ORIENTED X4, ROOM AIR, COMPLAINING OF ABDOMINAL AND RIGHT SHOULDER. GIVEN BENTYL AND MORPHINE WITH ADEQUATE RELIEF. AMBULATES WITH SUPERVISION, CONTINENT OF BOWEL AND BLADDER, STARTING ON SINEMET TODAY
--- NOTE | 2022-08-09 07:50 | NUR ---
RN OPENING NOTE RECEIVED PATIENT IN BED, AO X 4, OMANI SPEAKING. ABLE TO RESPONDS ALL PHYSICAL STIMULI. RESPIRATORY EVEN AND UNLABORED IN ROOM AIR, IN NO ACUTE RESPIRATORY DISTRESS OBSERVED. SKIN IS WARM TO TOUCH, KEEP CLEAN/DRY. KEPT ELEVATED HOB FOR ASPIRATION PRECAUTION AND ENSURE AIRWAY, ALSO LOWEST BED POSITIONED. BED ALARM IS ON AT ALL TIMES FOR SAFETY. CALL LIGHT WITHIN REACH, WILL CONTINUE TO MONITOR.
[2022-08-09 08:00] VITALS: BP 118/73
[2022-08-09 08:11] LABS: BASOPHILS % (AUTO) 0.3 % (0.0-2.0); EOSINOPHILS % (AUTO) 2.1 % (0.0-6.0); HEMATOCRIT 38 % (39-51); HEMOGLOBIN 13.3 g/dL (13.5-17.5); LYMPHOCYTES # (AUTO) 1.2 K/uL (0.8-4.8); LYMPHOCYTES % (AUTO) 19.9 % (20.0-44.0); MEAN CORPUSCULAR HGB CONC 35 g/dl (31.0-36.0); MEAN CORPUSCULAR VOLUME 92 fL (80-96); MONOCYTES % (AUTO) 16.3 % (2.0-12.0); NEUTROPHILS # (AUTO) 3.6 K/uL (1.8-8.9); NEUTROPHILS % (AUTO) 61.4 % (43.0-81.0); PLATELET COUNT (AUTO) 237 K/uL (150-450); RED BLOOD CELL COUNT(AUTO) 4.12 MIL/uL (4.5-6.0); WHITE BLOOD COUNT (AUTO) 5.9 K/uL (4.3-11.0)
[2022-08-09] MEDS: PANTOPRAZOLE 40 MG TABLET.DR PO SCH (08:29)
[2022-08-09] MEDS: DOCUSATE SODIUM 100 MG CAPSULE PO SCH (08:29)
[2022-08-09] MEDS: SERTRALINE HCL 50 MG TABLET PO SCH (08:29)
[2022-08-09] MEDS: CARBIDOPA/LEVODOPA 25/100 MG 1 UDTAB PO SCH ×2 (08:29→13:51)
[2022-08-09] MEDS: METOPROLOL TARTRATE 50 MG TABLET PO SCH (08:30)
[2022-08-09 08:38] LABS: CALCIUM, SERUM 9.2 mg/dL (8.5-10.1); CREATININE 0.8 mg/dL (0.6-1.3); MAGNESIUM 2.1 mg/dL (1.8-2.4); PHOSPHORUS 3.1 mg/dL (2.5-4.9); POTASSIUM 3.2 mmol/L (3.5-5.1)
--- NOTE | 2022-08-09 09:00 | NUR ---
PATENT NOTICED POTASSIUM LEVEL IS 3.3, INFORMED MD. NO NEW ORDER AT THIS TIME.
[2022-08-09 12:00] VITALS: BP 137/79
[2022-08-09] MEDS ORDERED: CARB1TAB21 PO (12:03)
--- NOTE | 2022-08-09 13:30 | NUR ---
PATIENT GOING TRANSFER TO THE [facility] AND GIVEN REPORT SHANNON/LISA. 3 rod buster PICKED UP PATIENT, HIS AT BED SIDE AND ALL MEDICATIONS RETURNED TO THE PATIENT. GIVEN MORPHINE 2MG BEFORE PATIENT LEAVE, NECK IMMOBILIZER ON HIS NECK, IN STABLE CONDITION.
[2022-08-09 15:41] LABS: LYMPHOCYTES % (MANUAL) 17 % (16-48); MONOCYTES % (MANUAL) 13 % (0-11.0); NEUTROPHILS % (MANUAL) 70 (42-76)
== END 2022-08-09 14:15 | disposition short-term general hospital (02) | DRG 253 ==
LOC: ER 02:38 → TELE 08:40
PROVIDERS: ADMIT Nurse Practitioner Acute Care; ATTEND Nurse Practitioner Acute Care
DX: K92.2 Gastrointestinal hemorrhage, unspecified (principal); E87.1 Hypo-osmolality and hyponatremia; G20 Parkinson's disease; E78.5 Hyperlipidemia, unspecified; K58.1 Irritable bowel syndrome with constipation; M48.02 Spinal stenosis, cervical region; E86.1 Hypovolemia; K57.30 Diverticulosis of large intestine without perforation or abscess without bleeding; M54.12 Radiculopathy, cervical region; Z20.822 Contact with and (suspected) exposure to COVID-19; I10 Essential (primary) hypertension; Z87.19 Personal history of other diseases of the digestive system; Z79.82 Long term (current) use of aspirin; Z79.899 Other long term (current) drug therapy; V23.4 Motorcycle driver injured in collision with car, pick-up truck or van in traffic accident; I25.10 Atherosclerotic heart disease of native coronary artery without angina pectoris
CPT/HCPCS: 36415; 70450-TC; 70496-TC; 70498-TC; 70551-TC; 71045-TC; 72141-TC; 80048-TC; 80061-TC; 80076-TC; 82272-TC; 83690-TC; 83735-TC; 84100-TC; 84484-TC; 85025-TC; 85730-TC; 87081-TC; 92507-TC; 92521; 92526; 92611-TC; 93307-TC; 97112-TC; 97116-TC; 97530-TC; C9113; C9803; G0378; J2270; J2405; J7050; Q9967

== ENCOUNTER 2022-11-20 02:34 | Emergency (ER) | payer MEDICAID ==
[~2022-11-20] VITALS: Ht 167.6 cm; Wt 72.6 kg
[~2022-11-20 02:34] MED LIST changes: +ACET-2605 PO; -ASPI-1420 PO; +CARB1TAB21 PO; -LISI10TA29 PO; -MAG355OR18 PO; -MECL-182 PO; -OMEP40CA21 PO; -TRAM50TA2 PO
[2022-11-20] MEDS ORDERED: IV NS 0.9% 500 ML BAG IV ONE (03:30)
[2022-11-20] MEDS ORDERED: HYDROCODONE/APAP 5/325MG TABLET PO ONE (03:30)
[2022-11-20] MEDS ORDERED: HYDROCODONE/APAP 5/325MG TABLET ONE (03:34)
[2022-11-20 04:02] LABS: BASOPHILS # (AUTO) 0.1 K/uL (0.0-0.2); BASOPHILS % (AUTO) 1.7 % (0.0-2.0); EOSINOPHILS # (AUTO) 0.1 K/uL (0.0-0.7); EOSINOPHILS % (AUTO) 2.2 % (0.0-6.0); HEMATOCRIT 43 % (39-51); HEMOGLOBIN 14.6 g/dL (13.5-17.5); LYMPHOCYTES # (AUTO) 0.7 K/uL (0.8-4.8); LYMPHOCYTES % (AUTO) 12.6 % (20.0-44.0); MEAN CORPUSCULAR HEMOGLOBIN 32 PG (26.0-33.0); MEAN CORPUSCULAR HGB CONC 34 g/dl (31.0-36.0); MEAN CORPUSCULAR VOLUME 94 fL (80-96); MONOCYTES # (AUTO) 0.5 K/uL (0.1-1.30); MONOCYTES % (AUTO) 9.1 % (2.0-12.0); NEUTROPHILS # (AUTO) 4.3 K/uL (1.8-8.9); NEUTROPHILS % (AUTO) 74.4 % (43.0-81.0); PLATELET COUNT (AUTO) 262 K/uL (150-450); RED BLOOD CELL COUNT(AUTO) 4.61 MIL/uL (4.5-6.0); RED CELL DISTRIBUTION WIDTH 13.7 % (11.5-15.0); WHITE BLOOD COUNT (AUTO) 5.8 K/uL (4.3-11.0)
[2022-11-20 04:31] LABS: CALCIUM, SERUM 9.2 mg/dL (8.5-10.1); CARBON DIOXIDE 22 mmol/L (21-32); CHLORIDE 100 mmol/L (98-107); CREATININE 0.7 mg/dL (0.6-1.3); GLUCOSE 112 mg/dL (74-106); POTASSIUM 3.5 mmol/L (3.5-5.1); SODIUM SERUM 136 mmol/L (136-145); UREA NITROGEN, BLOOD 8 mg/dL (7-18)
[2022-11-20] MEDS ORDERED: CARBIDOPA/LEVODOPA 25/100 MG 1 UDTAB PO ONE (05:00)
[2022-11-20] MEDS ORDERED: MORPHINE SULFATE INJ 2 MG/ML DISP.SYRIN IV ONE (05:30)
[2022-11-20] MEDS ORDERED: MORPHINE SULFATE INJ 4 MG/ML DISP.SYRIN ONE (05:37)
[2022-11-20] MEDS ORDERED: CARB1TAB21 PO ×3 (06:00→06:17)
[2022-11-20] MEDS ORDERED: SENN-261 PO ×3 (06:00→06:17)
[2022-11-20] MEDS ORDERED: PANT40TA49 PO ×3 (06:00→06:17)
[2022-11-20] MEDS ORDERED: CYCL5TAB PO ×3 (06:00→06:17)
[2022-11-20] MEDS ORDERED: ATOR40TA PO ×3 (06:00→06:17)
[2022-11-20] MEDS ORDERED: ONDA4TAB11 PO ×3 (06:00→06:17)
[2022-11-20] MEDS ORDERED: METO50TA16 PO ×3 (06:00→06:17)
[2022-11-20] MEDS ORDERED: CYCLOBENZAPRINE 10 MG TABLET PO ONE (06:30)
[2022-11-20] MEDS ORDERED: ATORVASTATIN 40 MG TABLET PO SCH (06:30)
[2022-11-20] MEDS ORDERED: PANTOPRAZOLE 40 MG TABLET.DR PO ONE ×2 (06:30→06:42)
[2022-11-20] MEDS ORDERED: METOPROLOL TARTRATE 25 MG TABLET PO ONE (06:30)
[2022-11-20] MEDS ORDERED: ATORVASTATIN 40 MG TABLET ONE (06:41)
[2022-11-20] MEDS ORDERED: METOPROLOL TARTRATE 50 MG TABLET ONE (06:42)
[2022-11-20] MEDS ORDERED: CYCLOBENZAPRINE 10 MG TABLET ONE (06:42)
[2022-11-20 07:04] VITALS: BP 176/87; TEMP 99; O2SAT 97
== END 2022-11-20 07:05 | disposition home or self-care (01) ==
LOC: ER 02:53
DX: R42 Dizziness and giddiness (principal); G20 Parkinson's disease; I10 Essential (primary) hypertension; R00.0 Tachycardia, unspecified; Z79.899 Other long term (current) drug therapy
CPT/HCPCS: 99285; 96374; 71045; 93005; 85025; 80048; 36415; 84484 ×2; J2270; J7040

== ENCOUNTER 2023-01-21 01:55 | Emergency (ER) | payer BC, MEDICAID ==
[~2023-01-21] VITALS: Ht 167.6 cm; Wt 79.4 kg
[~2023-01-21 01:55] MED LIST changes: +ATOR40TA PO; +CYCL5TAB PO; +ONDA4TAB11 PO; +PANT40TA49 PO; +SENN-261 PO
[2023-01-21 03:19] LABS: CALCIUM, SERUM 8.9 mg/dL (8.5-10.1); CREATININE 0.8 mg/dL (0.6-1.3); POTASSIUM 3.8 mmol/L (3.5-5.1)
[2023-01-21 03:33] LABS: BASOPHILS % (AUTO) 0.5 % (0.0-2.0); EOSINOPHILS % (AUTO) 0.9 % (0.0-6.0); HEMATOCRIT 41 % (39-51); HEMOGLOBIN 14.1 g/dL (13.5-17.5); LYMPHOCYTES # (AUTO) 1.3 K/uL (0.8-4.8); LYMPHOCYTES % (AUTO) 26.8 % (20.0-44.0); MEAN CORPUSCULAR HEMOGLOBIN 32 PG (26.0-33.0); MEAN CORPUSCULAR HGB CONC 35 g/dl (31.0-36.0); MEAN CORPUSCULAR VOLUME 92 fL (80-96); MONOCYTES # (AUTO) 0.7 K/uL (0.1-1.30); MONOCYTES % (AUTO) 14.6 % (2.0-12.0); NEUTROPHILS # (AUTO) 2.8 K/uL (1.8-8.9); NEUTROPHILS % (AUTO) 57.2 % (43.0-81.0); PLATELET COUNT (AUTO) 264 K/uL (150-450); RED CELL DISTRIBUTION WIDTH 13.4 % (11.5-15.0); WHITE BLOOD COUNT (AUTO) 4.9 K/uL (4.3-11.0)
[2023-01-21] MEDS ORDERED: ACETAMINOPHEN 325 MG TABLET ONE (04:04)
[2023-01-21 04:10] VITALS: BP 164/110; TEMP 98.8; O2SAT 95
[2023-01-21] MEDS ORDERED: ACETAMINOPHEN 325 MG TABLET PO ONE (04:30)
== END 2023-01-21 04:16 | disposition home or self-care (01) ==
LOC: ER 02:01
DX: R42 Dizziness and giddiness (principal); I10 Essential (primary) hypertension; Z79.899 Other long term (current) drug therapy
CPT/HCPCS: 36415; 80048-TC; 85025-TC